=== PATIENT | female | born 1945 | race Caucasian/White ===

== ENCOUNTER → 2016-11-02 | Outpatient (CLI) | payer OTHER, MEDICARE ==
[~2016-11-02] MED LIST: CLR10 PO; ESCI10TA17 PO; LOSA1TAB PO; METF-382 PO; MULT-506 PO
[2016-11-02 12:37] LABS: THYROID STIMULATING HORMONE 1.66 uIu/ml (0.300-4.500)
== END | disposition home or self-care (01) ==
LOC: C.LAB1850 11:18
PROVIDERS: ATTEND Internal Medicine Endocrinology, Diabetes & Metabolism
DX: E03.9 Hypothyroidism, unspecified (principal)

== ENCOUNTER → 2016-11-20 | Outpatient (CLI) | payer OTHER, MEDICARE | END | disposition home or self-care (01) | LOC: C.MAMM 08:23 | PROVIDERS: ATTEND Internal Medicine | DX: M85.89 Other specified disorders of bone density and structure, multiple sites (principal) ==

== ENCOUNTER → 2016-12-01 | Outpatient (CLI) | payer OTHER, MEDICARE ==
--- NOTE | 2016-12-06 09:35 | CODING QUERY MEDICAL NECESSITY ---
SUPPORTING DIAGNOSIS NEEDED Dr. Cullen, A supporting diagnosis is required for the test/procedure performed on this patient in order for us to be reimbursed by the patient's insurance. Please provide a supporting diagnosis for the following test/procedure listed below next to the test name along with your signature. *If there is no additional diagnosis for this patient that would support the following test/procedure please document that below next to the test/procedure. Test(s)/Procedure(s) that require a supporting diagnosis: * ([id number]) VITAMIN D ASSAY DIAGNOSIS: DATE OF SERVICE: 12/01/16 Provider Signature: Date: Thank you Brian Rubalcava [facility] Information Management Once completed, please kindly fax back to [phone] For questions please call [phone]
== END | disposition home or self-care (01) ==
LOC: C.LABBC 10:59
PROVIDERS: ATTEND Internal Medicine
DX: Z00.00 Encounter for general adult medical examination without abnormal findings (principal); M85.80 Other specified disorders of bone density and structure, unspecified site

== ENCOUNTER → 2017-08-17 | Outpatient (CLI) | payer OTHER, MEDICARE ==
--- NOTE | 2017-08-17 15:50 | MAMMOGRAPHY REPORT ---
BILATERAL DIGITAL SCREENING MAMMOGRAM WITH CAD: 08/17/2017 CLINICAL HISTORY: Routine screening. Patient has no complaints. TECHNIQUE: Current study was also evaluated with a Computer Aided Detection (CAD) system. Bilateral CC and MLO views were obtained. COMPARISON: Comparison is made to exams dated: 04/17/2016 mammogram, 04/09/2015 mammogram, 06/04/2013 ma mmogram, 06/15/2011 mammogram - [facility], 06/12/2007, and 06/12/2007. BREAST COMPOSITION: The tissue of both breasts is heterogeneously dense, which may obscure small mas ses. FINDINGS: No suspicious masses, calcifications, or areas of architectural distortion are noted in ei ther breast. There has been no significant interval change compared to prior exams. IMPRESSION: ACR BI-RADS CATEGORY 1: NEGATIVE There is no mammographic evidence of malignancy. A 1 year screening mammogram is recommended. The pa tient will receive written notification of the results. Approximately 10% of breast cancers are not detected with mammography. A negative mammographic report should not delay biopsy if a clinically suggestive mass is present. Donna Wellington M.D. ah/:08/17/2017 14:35:03 Motor Transport Inspector: Yulisa VARMA(R)(Cory)(BD), [facility] letter sent: Normal 1/2 BI-RADS Code: ACR BI-RADS Category 1: Negative
== END | disposition home or self-care (01) ==
LOC: C.MAMM 14:09
PROVIDERS: ATTEND Family Medicine
DX: Z12.31 Encounter for screening mammogram for malignant neoplasm of breast (principal)

== ENCOUNTER 2019-10-28 07:30 | Observation (INO) ==
[2019-10-28] MEDS ORDERED: MoRPHine SULFATE 2 MG/ML CARP IV PRN ×2 (07:55→15:55)
[2019-10-28] MEDS ORDERED: ONDANSETRON INJ 2 MG/ML 2 ML VIAL IV PRN ×3 (07:55→15:55)
[2019-10-28] MEDS ORDERED: SODIUM CHLORIDE 0.9% 1000ML 1,000 ML IV SCH (08:00)
--- NOTE | 2019-10-28 08:02 | Emergency Department Note ---
Entered by Neha Mcleod acting as a scribe for Lisa Samano DO History of Present Illness General Chief complaint: Abdominal Pain Stated complaint: SEVERE ABDOMINAL PAIN Time Seen by Provider: 10/28/19 07:39 Source: patient Mode of arrival: ambulatory Limitations: no limitations History of Present Illness Provider complaint: Abdominal pain Onset (ago): day(s) 1 Location: abdomen Radiation: back Severity: moderate Pain Consistency: + constant Maximum Pain Intensity: 8 Current Pain Intensity: 8 Quality: + aching Relieved By: + none Exacerbated By: + movement Associated symptoms: + fever/chills and + nausea/vomiting Treatments prior to arrival: cold therapy, heat therapy and other (Tums) This is a 74-year-old female presenting with complaints of abdominal pain. Patient states pain began last night across her central abdomen and lower abdomen. States she did become nauseous and vomited a small amount once. No blood noted in the vomit. Patient states pain persisted most of the night on this morning pain feels slightly lower and slightly worse on the right side. Patient notes there is mild accompanying low back pain. Patient denies any recent change in her bowel movements. Denies black or bloody stools. Denies noticing any change in her urine and has been urinating normally. Patient denies prior history of recurrent UTIs, although she states she did have a urinary tract infection several weeks ago which was treated without complicatio n. Patient states she has had chills with the pain, did not measure her temperature. Patient states she "has not felt well" over the course of the last week, but had not noticed any more focal symptoms. Patient has had prior colonoscopy that were reported to her as "normal". Only prior abdominal surgical history is a bilateral salpingo-oophorectomy. Patient denies any recent medication changes, dietary changes, or other recent illness. Patient noticed that going over bumps while driving here in the car made the pain hurt worse. Patient has not noticed any other change in the pain with position. Patient did not eat breakfast this morning. Home Medications Home Medications Medication Instructions Recorded Confirmed Type atorvastatin 20 mg tablet 20 mg PO DAILY #45 tab 05/06/19 10/28/19 History conjugated estrogens 0.625 mg/gram 1 applic TOPICAL DAILY gm 05/06/19 10/28/19 History vaginal cream hydrocodone-acetaminophen [[place]ard[place]] 1 - 2 tab PO Q6H PRN #20 tab 10/29/19 Rx Allergies Allergy/AdvReac Type Severity Reaction Status Date / Time amoxicillin Allergy Unknown UNKNOWN Verified 10/28/19 09:06 Sulfa (Sulfonamide Allergy Unknown UNKNOWN Verified 10/28/19 09:06 Antibiotics) Past Med/Surg History Medical History Anxiety disorder (Chronic) Dyslipidemia (Chronic) Idiopathic peripheral neuropathy (Chronic) Impaired fasting glucose (Chronic) Irritable bowel syndrome (Chronic) Radiculopathy (Chronic) Scoliosis (Chronic) Skin cancer dermatofibrosarcoma Spinal stenosis (Chronic) Thiamin deficiency (Chronic) Tremor (Chronic) Surgical History H/O bilateral oophorectomy H/O breast surgery History of salpingo-oophorectomy S/P skin biopsy Family History Mother Hypertension Father Hypertension Cardiac disorder Myocardial infarction Unknown Heart disease Sister Kidney stones Aunt Diabetes Social History Preferred Language: Slovenian Communication Ability: Effective Editor Department Required: No Beliefs That Will Affect Care: None Current Living Situation: Alone Feels Safe at Home: Yes Smoking Status: Never smoker Second Hand Exposure: No ; Hx Alcohol Use: No Hx Substance Use: No Review of Systems See HPI for pertinent positives & negatives. and A total of 10 systems reviewed and were otherwise negative Physical Exam Vital Signs Vital Signs - 24 hr 10/28/19 07:35 10/28/19 08:34 10/28/19 09:20 Temperature 98.6 F Temperature Source Oral Pulse Rate 94 H Pulse Rate [Left Finger] 70 80 Respiratory Rate 18 18 18 Respiratory Effort / Characteristics Non-Labored Spontaneous Respiratory Depth Normal Blood Pressure 169/80 H Blood Pressure [Left Arm] 148/84 H 161/81 H Blood Pressure Mean 109 Blood Pressure Mean [Left Arm] 105 107 Pulse Oximetry 98 99 99 Oxygen Delivery Method Room Air Room Air Room Air Sepsis Recent Fever Within 48 Hours No Sepsis New/Unexplained Change in Mental Status No Sepsis Action Taken by Nursing No Action Required 10/28/19 10:38 02/11/20 11:09 Temperature Temperature Source Pulse Rate Pulse Rate [Left Finger] 84 82 Respiratory Rate 16 20 Respiratory Effort / Characteristics Respiratory Depth Blood Pressure Blood Pressure [Left Arm] 144/77 H 136/75 Blood Pressure Mean Blood Pressure Mean [Left Arm] 99 95 Pulse Oximetry 96 96 Oxygen Delivery Method Room Air Room Air Sepsis Recent Fever Within 48 Hours Sepsis New/Unexplained Change in Mental Status Sepsis Action Taken by Nursing GENERAL: alert, well appearing, well nourished, no distress, non-toxic EYE EXAM: normal conjunctiva, PERRL and EOM's grossly intact OROPHARYNX: no exudate, no erythema, lips, buccal mucosa, and tongue normal and mucous membranes are moist NECK: supple, no nuchal rigidity, no adenopathy, non-tender LUNGS: Clear to auscultation. Normal chest wall mechanics HEART: no murmurs, S1 normal and S2 normal ABDOMEN: abdomen soft, mild central and lower abdominal tenderness, worse in the right lower quadrant, normo-active bowel sounds, no masses, mild rebound tenderness in the right lower quadrant. No guarding. BACK: Back is symmetrical on inspection and there is no deformity, no midline tenderness, no CVA tenderness. SKIN: no rashes and no bruising UPPER EXTREMITIES: upper extremities are grossly normal. FROM, nml pulses b/l. LOWER EXTREMITIES: No pitting edema. FROM, nml pulses b/l. Mild bilateral neuropathy which is chronic. NEURO EXAM: Normal sensorium, cranial nerves II-XII grossly intact, normal speech, no gross weakness of arms, no gross weakness of legs. Gross sensation intact. Course Course 0742: The patient was evaluated in room B8, and a complete history and physical examination were performed. 0812: I reevaluated the patient at this time. The nurse is medicating the patient at this time. 0843: I reevaluated the patient at this time who remains stable. 0950: I checked on the patient at this time who has finished her oral contrast. She declines further nausea medication. 1040: I updated the patient and her family at this time on her imaging study. 1047: I discussed the patients case with Dr. Cosme [facility] [place] General Surgeon, He will come examine the patient at bedside. He will evaluate the patient for further management. 1102: I updated the patient and her daughter at this time. Administered Medications Discontinued Medications Acetaminophen (Tylenol) 650 mg PO Q4H PRN PRN Reason: Pain Stop: 11/27/19 15:54 Last Admin: 10/29/19 06:04 Dose: 650 mg Documented by: [id number] Admin: 10/28/19 20:54 Dose: 650 mg Documented by: [id number] Bupivacaine HCl (Marcaine 0.5% Mpf) Confirm Administered Dose 30 ml .ROUTE .STK- MED ONE Stop: 10/28/19 13:02 Last Admin: 10/28/19 14:05 Dose: 5 ml Documented by: [id number] Sodium Chloride (Nss 1000ml) 1,000 mls @ 125 mls/hr IV .Q8H [facility] Stop: 11/27/19 07:59 Last Infusion: 10/28/19 16:00 Dose: 0 mls/hr Documented by: [id number] Admin: 10/28/19 08:16 Dose: 125 mls/hr Documented by: [id number] Cefoxitin Sodium (Mefoxin) 2,000 mg in 60 mls @ 100 mls/hr IV NOW [facility] Stop: 10/28/19 11:22 Last Infusion: 10/28/19 11:55 Dose: 0 mls/hr Documented by: [id number] Admin: 10/28/19 11:07 Dose: 100 mls/hr Documented by: [id number] Cefoxitin Sodium 1,000 mg/ (Dextrose) 60 mls @ 100 mls/hr IV Q6H [facility] Stop: 11/07/19 17:59 Last Infusion: 10/29/19 05:53 Dose: 0 mls/hr Documented by: [id number] Admin: 10/29/19 05:17 Dose: 100 mls/hr Documented by: [id number] Infusion: 10/28/19 23:38 Dose: 0 mls/hr Documented by: [id number] Admin: 10/28/19 23:02 Dose: 100 mls/hr Documented by: [id number] Infusion: 10/28/19 19:45 Dose: 0 mls/hr Documented by: [id number] Admin: 10/28/19 18:34 Dose: 100 mls/hr Documented by: [id number] Sodium Chloride (Nss 1000ml) 1,000 mls @ 80 mls/hr IV .[id number] [facility] Stop: 11/27/19 15:54 Last Admin: 10/29/19 06:05 Dose: Not Given Documented by: [id number] Infusion: 10/29/19 06:05 Dose: 0 mls/hr Documented by: [id number] Infusion: 10/28/19 19:45 Dose: 80 mls/hr Documented by: [id number] Infusion: 10/28/19 18:37 Dose: 0 mls/hr Documented by: [id number] Admin: 10/28/19 17:07 Dose: 80 mls/hr Documented by: [id number] Acetaminophen (Ofirmev) 1,000 mg in 100 mls @ 400 mls/hr IV NOW STA Stop: 10/28/19 16:36 Last Infusion: 10/28/19 16:46 Dose: 0 mls/hr Documented by: [id number] Admin: 10/28/19 16:31 Dose: 400 mls/hr Documented by: [id number] Ioversol (Optiray 320 100ml) 93 ml IV ONCE PRN PRN Reason: Interaction Checking Stop: 11/01/19 10:07 Last Admin: 10/28/19 10:08 Dose: 93 ml Documented by: [id number] Morphine Sulfate (Morphine Sulfate) 2 mg IV Q2H PRN PRN Reason: Pain Stop: 11/11/19 07:54 Last Admin: 10/28/19 08:16 Dose: 2 mg Documented by: [id number] Morphine Sulfate (Morphine Sulfate) 4 mg IV NOW STA Stop: 10/28/19 08:56 Last Admin: 10/28/19 08:59 Dose: 4 mg Documented by: [id number] Morphine Sulfate (Morphine Sulfate) 4 mg IV NOW STA Stop: 10/28/19 12:31 Last Admin: 10/28/19 12:37 Dose: 4 mg Documented by: [id number] Ondansetron HCl (Zofran) 4 mg IV NOW PRN PRN Reason: Nausea Stop: 11/27/19 07:54 Last Admin: 10/28/19 08:16 Dose: 4 mg Documented by: [id number] Ondansetron HCl (Zofran) 4 mg IV 4XDQ4H PRN PRN Reason: Nausea Stop: 11/27/19 15:54 Last Admin: 10/28/19 18:27 Dose: 4 mg Documented by: [id number] Medical Decision Making Differential Diagnosis Differential diagnoses includes but is not limited to gastritis, peptic ulcer disease, GERD, gallbladder disease, pancreatitis, small bowel obstruction, acute coronary syndrome, pericarditis, ischemic bowel, irritable bowel disease, irritable bowel syndrome, appendicitis, diverticulitis, malignancy, hernia, urinary tract infection, torsion, perforation, trauma, infectious. Medical Records Attestation: I reviewed the patient's medical records. Home Medications Current Medication List: was personally reviewed by me Laboratory Data Attestation: I reviewed the patient's lab results. Result diagrams: 10/28/19 08:04 10/28/19 08:04 Lab Results 10/28/19 10/28/19 10/28/19 Range/Units 08:04 08:04 08:04 WBC 13.49 H (4.8-10.8) K/uL RBC 4.67 (4.2-5.4) M/uL Hgb 13.9 (12.0-16.0) g/dL Hct 40.4 (37-47) % MCV 86.5 (80-100) fL MCH 29.8 (25-34) pg MCHC 34.4 (32-36) g/dL RDW Std Deviation 44.4 (36.4-46.3) fL RDW Coeff of [place] 14.0 (11.5-14.5) % Plt Count 185 (130-400) K/uL MPV 9.2 (7.4-10.4) fL Immature Gran % (Auto) 0.2 % Neut % (Auto) 87.9 % Lymph % (Auto) 7.2 % [place] % (Auto) 4.5 % Eos % (Auto) 0.1 % Baso % (Auto) 0.1 % Immature Gran # (Auto) 0.03 H (0.00-0.02) K/uL Neut # (Auto) 11.85 H (1.4-6.5) K/uL Lymph # (Auto) 0.97 L (1.2-3.4) K/uL [place] # (Auto) 0.61 H (0.11-0.59) K/uL Eos # (Auto) 0.01 (0-0.5) K/uL Baso # (Auto) 0.02 (0-0.2) K/uL Sodium 135 L (136-145) mmol/L Potassium 3.8 (3.5-5.1) mmol/L Chloride 102 (98-107) mmol/L Carbon Dioxide 26 (21-32) mmol/L Anion Gap 7.0 (3-11) BUN 18 (7-18) mg/dl Creatinine 0.79 (0.6-1.2) mg/dl Est Cr Clr Drug Dosing 67.3 ml/min Est GFR ( Amer) 86.7 Est GFR (Non-Af Amer) 74.8 BUN/Creatinine Ratio 22.0 H (10-20) Glucose 142 H (70-99) mg/dl Lactate 1.1 (0.4-2.0) mmol/L Calcium 9.5 (8.5-10.1) mg/dl Total Bilirubin 0.5 (0.2-1) mg/dl AST 14 L (15-37) U/L ALT 16 (12-78) U/L Alkaline Phosphatase 74 (45-117) U/L Total Protein 6.8 (6.4-8.2) gm/dl Albumin 3.5 (3.4-5.0) gm/dl Globulin 3.3 (2.5-4.0) gm/dl Albumin/Globulin Ratio 1.1 (0.9-2) Lipase 127 (73-393) U/L HCG, Qual Urine Color Urine Appearance (Clear) Urine pH (4.5-7.5) Ur Specific [place] (1.000-1.030) Urine Protein (Negative) Urine Glucose (UA) (Negative) Urine Ketones (Negative) Urine Blood (Negative) Urine Nitrite (Negative) Urine Bilirubin (Negative) Urine Urobilinogen (Negative) Ur Leukocyte Esterase (Negative) 10/28/19 10/28/19 Range/Units 08:04 08:04 WBC (4.8-10.8) K/uL RBC (4.2-5.4) M/uL Hgb (12.0-16.0) g/dL Hct (37-47) % MCV (80-100) fL MCH (25-34) pg MCHC (32-36) g/dL RDW Std Deviation (36.4-46.3) fL RDW Coeff of [place] (11.5-14.5) % Plt Count (130-400) K/uL MPV (7.4-10.4) fL Immature Gran % (Auto) % Neut % (Auto) % Lymph % (Auto) % [place] % (Auto) % Eos % (Auto) % Baso % (Auto) % Immature Gran # (Auto) (0.00-0.02) K/uL Neut # (Auto) (1.4-6.5) K/uL Lymph # (Auto) (1.2-3.4) K/uL [place] # (Auto) (0.11-0.59) K/uL Eos # (Auto) (0-0.5) K/uL Baso # (Auto) (0-0.2) K/uL Sodium (136-145) mmol/L Potassium (3.5-5.1) mmol/L Chloride (98-107) mmol/L Carbon Dioxide (21-32) mmol/L Anion Gap (3-11) BUN (7-18) mg/dl Creatinine (0.6-1.2) mg/dl Est Cr Clr Drug Dosing ml/min Est GFR ( Amer) Est GFR (Non-Af Amer) BUN/Creatinine Ratio (10-20) Glucose (70-99) mg/dl Lactate (0.4-2.0) mmol/L Calcium (8.5-10.1) mg/dl Total Bilirubin (0.2-1) mg/dl AST (15-37) U/L ALT (12-78) U/L Alkaline Phosphatase (45-117) U/L Total Protein (6.4-8.2) gm/dl Albumin (3.4-5.0) gm/dl Globulin (2.5-4.0) gm/dl Albumin/Globulin Ratio (0.9-2) Lipase (73-393) U/L HCG, Qual Cancelled Urine Color Yellow Urine Appearance Clear (Clear) Urine pH 6.0 (4.5-7.5) Ur Specific [place] 1.019 (1.000-1.030) Urine Protein Negative (Negative) Urine Glucose (UA) Negative (Negative) Urine Ketones 2+ H (Negative) Urine Blood Negative (Negative) Urine Nitrite Negative (Negative) Urine Bilirubin Negative (Negative) Urine Urobilinogen Negative (Negative) Ur Leukocyte Esterase Negative (Negative) Imaging Data Radiologist's Impression: Radiology results as stated below per my review and the radiologist's interpretation: CT OF THE ABDOMEN AND PELVIS WITH CONTRAST CLINICAL HISTORY: Right lower quadrant abdominal pain. COMPARISON STUDY: CT of the abdomen and pelvis June 14, 2015. Abdominal ultrasound May 08, 2016. TECHNIQUE: Following IV administration of 93 mL of Optiray-320, axial images of the abdomen and pelvis were obtained from the lung bases to the proximal femurs. Images were reviewed in the axial, sagittal, and coronal planes. IV contrast was administered without complication. Automated exposure control was utilized for the study. A dose lowering technique was utilized adhering to the principles of ALARA. Oral contrast was administered. CT DOSE: 337.44 mGy.cm FINDINGS: Incidental note is made of S-shaped scoliosis of the thoracolumbar spine. Mild cardiomegaly is noted. The liver, spleen, adrenal glands, kidneys and pancreas are unremarkable. A subcentimeter lesion within the midpole the right kidney is too small to characterize. There is no hydronephrosis. There is no biliary or pancreatic ductal dilatation patient. There is no evidence for a bowel obstruction. Several appendicoliths within the appendix are noted. The ap pendix is dilated, measuring 1.2 cm in caliber. There is mild periappendiceal infiltration. Appendix is fluid-filled. No free air or abscess is noted. There is no evidence for obstruction. Sigmoid diverticulosis is noted without evidence for acute diverticulitis. There is no lymphadenopathy. There are no suspicious osseous lesions. IMPRESSION: Acute appendicitis. No free air or abscess. ACT 112: Negative or not required by law. Electronically signed by: Elieser Hooper M.D. 10/28/2019 10:20 AM ECG Data Attestation: I personally reviewed and interpreted this ECG as follows: Indication: + abdominal pain Rate (beats per minute): 71 Rhythm: + sinus rhythm ECG Intervals/blocks: + Right Bundle branch block ECG [place]: + Left axis deviation ECG ST segments: no ST depression and no ST elevation ECG Findings: no PACs and no PVCs Blood Pressure Blood Pressure Findings: Elevated blood pressure Blood Pressure Disposition: further management by hospitalist [facility] Narrative Pt presenting with abdominal pain and nausea. No changes in bowel/bladder function. Vital signs stable. Pt found to have acute appendicitis on CT, no perf or abscess. Pt and daughter made aware of all results. Case discussed with Dr. Cosme, general surgery who came and evaluated pt at bedside for likely appendectomy. Pt in agreement with the plan. No evidence of bacteremia/sepsis, no other acute GI/ pathology noted. I do not suspect ischemia pathology. Impression & Plan Abdominal pain, Acute appendicitis, Nausea & vomiting Discharge Plan Visit Data *Final* Discharge Date/Time: 10/28/19 12:47 Chief Complaint: Abdominal Pain Stated Complaint: SEVERE ABDOMINAL PAIN ED Provider: Lisa Samano Discharge Problem: Abdominal pain, Acute appendicitis, Nausea & vomiting Patient Disposition: Still a Patient Discharge Instructions Interventions: ED Discharge Assessment Last Done: 10/28/19 12:47 Discharge Problem: Abdominal pain Qualifiers: Abdominal location: unspecified location Qualified Code(s): R10.9 - Unspecified abdominal pain Acute appendicitis Qualifiers: Acute appendicitis type: other Qualified Code(s): K35.890 - Other acute appendicitis without perforation or gangrene Nausea & vomiting Qualifiers: Vomiting type: unspecified Vomiting Intractability: unspecified Qualified Code(s): R11.2 - Nausea with vomiting, unspecified The scribe's documentation has been prepared under my direction and personally reviewed by me in its entirety. I confirm that the note above accurately reflects all work, treatment, procedures, and medical decision making performed by me.
[2019-10-28 08:14] LABS: Basophils # (auto) 0.02 K/uL (0-0.2); Basophils % (auto) 0.1 %; Eosinophils # (auto) 0.01 K/uL (0-0.5); Eosinophils % (auto) 0.1 %; Hematocrit (blood only) 40.4 % (37-47); Hemoglobin 13.9 g/dL (12.0-16.0); Immature Granulocytes # (auto) 0.03 K/uL (0.00-0.02); Immature Granulocytes % (auto) 0.2 %; Lymphocytes # (auto) 0.97 K/uL (1.2-3.4); Lymphocytes % (auto) 7.2 %; Mean Corpuscular Hemoglobin 29.8 pg (25-34); Mean Corpuscular Hgb Conc 34.4 g/dL (32-36); Mean Corpuscular Volume 86.5 fL (80-100); Mean Platelet Volume 9.2 fL (7.4-10.4); Monocytes # (auto) 0.61 K/uL (0.11-0.59); Monocytes % (auto) 4.5 %; Neutrophils # (auto) 11.85 K/uL (1.4-6.5); Neutrophils % (auto) 87.9 %; Platelet Count 185 K/uL (130-400); RDW Standard Deviation 44.4 fL (36.4-46.3); Red Blood Count 4.67 M/uL (4.2-5.4); White Blood Count 13.49 K/uL (4.8-10.8)
[2019-10-28 08:29] LABS: Albumin Level 3.5 gm/dl (3.4-5.0); Calcium 9.5 mg/dl (8.5-10.1); Creatinine Clr Calc Pharmacy 67.3 ml/min; Est GFR (African American) 86.7; Est GFR (Non-African American) 74.8; Potassium 3.8 mmol/L (3.5-5.1)
[2019-10-28 08:30] LABS: Appearance Urine Clear (Clear); Bilirubin Urine Negative (Negative); Blood Urine Negative (Negative); Color Urine Yellow; Glucose Urine UA Negative (Negative); Ketones Urine 2+ (Negative); Leukocyte Esterase Urine Negative (Negative); Nitrite Urine Negative (Negative); Protein Urine Negative (Negative); Specific Gravity Urine 1.019 (1.000-1.030); Urobilinogen Urine Negative (Negative)
[2019-10-28 08:32] LABS: Albumin Globulin Ratio 1.1 (0.9-2); Bilirubin,Total 0.5 mg/dl (0.2-1); Globulin 3.3 gm/dl (2.5-4.0); Total Protein 6.8 gm/dl (6.4-8.2)
[2019-10-28] MEDS ORDERED: MoRPHine SULFATE 4 MG/ML 1 ML CARP\\VIAL IV STA ×2 (08:55→12:30)
[2019-10-28] MEDS ORDERED: IOVERSOL 100ml IV PRN (10:08)
--- NOTE | 2019-10-28 10:21 | CT Scan Report ---
CT OF THE ABDOMEN AND PELVIS WITH CONTRAST CLINICAL HISTORY: Right lower quadrant abdominal pain. COMPARISON STUDY: CT of the abdomen and pelvis June 14, 2015. Abdominal ultrasound May 08 016. TECHNIQUE: Following IV administration of 93 mL of Optiray-320, axial images of the abdomen and pelvi s were obtained from the lung bases to the proximal femurs. Images were reviewed in the axial, sagitt al, and coronal planes. IV contrast was administered without complication. Automated exposure contro l was utilized for the study. A dose lowering technique was utilized adhering to the principles of A BON. Oral contrast was administered. CT DOSE: 337.44 mGy.cm FINDINGS: Incidental note is made of S-shaped scoliosis of the thoracolumbar spine. Mild cardiomegaly is noted. The liver, spleen, adrenal glands, kidneys and pancreas are unremarkable. A subcentimeter lesion within the midpole the right kidney is too small to characterize. There is no hydronephrosis. There is no biliary or pancreatic ductal dilatation patient. There is no evidence for a bowel obstruc tion. Several appendicoliths within the appendix are noted. The appendix is dilated, measuring 1.2 cm in caliber. There is mild periappendiceal infiltration. Appendix is fluid-filled. No free air or abs cess is noted. There is no evidence for obstruction. Sigmoid diverticulosis is noted without evidence for acute diverticulitis. There is no lymphadenopathy. There are no suspicious osseous lesions. IMPRESSION: Acute appendicitis. No free air or abscess. ACT 112: Negative or not required by law. Electronically signed by: Elieser Hooper M.D. 10/28/2019 10:20 AM
[2019-10-28] MEDS ORDERED: cefOXitin 2,000 MG/60 ML BAG IV STA (10:47)
--- NOTE | 2019-10-28 11:07 | History & Physical Report ---
Date of Service October 28, 2019 Assessment & Plan (1) Acute appendicitis: This is a 74y F who presents to the [facility] ED on 10/28/19 with complaints of abdominal pain. Workup in the ED revealed a WBC of [address] evidence concerning for acute appendicitis. On examination patient is tender to palpation in the right lower quadrant. We will plan to keep patient NPO with IVF. IV abx have been started in the ED. We will plan to proceed with surgical intervention for laparoscopic appendectomy today. Dr. Cosme will be by to obtain surgical consent. Dr Cosme- agree with above- pt seen in ER- for laparoscopic appendectomy, possible open operation. History of Present Illness Primary Care Provider: Paris Chauhan DO This is a 74y F who presents to the [facility] ED on 10/28/19 with complaints of abdominal pain. Patient reports her pain started yesterday evening after she ate dinner, around 6-7pm. Pain was initially generalized and she thought it was reflux type symptoms. She was unable to get comfortable during the night and her pain migrated towards the lower abdomen, worse on the right side prompting her to come to the ED for evaluation. She describes the pain as achy in character. Workup in the ED showed a WBC of 13.[address] a/p performed revealed evidence of acute appendicitis. She endorses + nausea, with a small bout of emesis, hot- flashes, and chills. She states she feels some urinary symptoms concerning for UTI, but UA in the ED was negative. She denies change in bowel habits, chest pain, or shortness of breath. Her prior abdominal surgical history includes a bilateral salpingo-oophorectomy. Allergies Allergy/AdvReac Type Severity Reaction Status Date / Time amoxicillin Allergy Unknown UNKNOWN Verified 10/28/19 09:06 Sulfa (Sulfonamide Allergy Unknown UNKNOWN Verified 10/28/19 09:06 Antibiotics) Home Medications Home Medications Medication Instructions Recorded Confirmed Type atorvastatin 20 mg tablet 20 mg PO DAILY #45 tab 05/06/19 10/28/19 History conjugated estrogens 0.625 mg/gram 1 applic TOPICAL DAILY gm 05/06/19 10/28/19 History vaginal cream Past Med/Surg History Medical History Anxiety disorder (Chronic) Dyslipidemia (Chronic) Idiopathic peripheral neuropathy (Chronic) Impaired fasting glucose (Chronic) Irritable bowel syndrome (Chronic) Radiculopathy (Chronic) Scoliosis (Chronic) Skin cancer dermatofibrosarcoma Spinal stenosis (Chronic) Thiamin deficiency (Chronic) Tremor (Chronic) Surgical History H/O bilateral oophorectomy H/O breast surgery History of salpingo-oophorectomy S/P skin biopsy Family History Mother Hypertension Father Hypertension Cardiac disorder Myocardial infarction Unknown Heart disease Sister Kidney stones Aunt Diabetes Social History Preferred Language: Turkmen Communication Ability: Effective Oxygen Equipment Aide Required: No Beliefs That Will Affect Care: None Current Living Situation: Alone Other Information That Helps Us Care for You: No Feels Safe at Home: Yes Safety Concerns: Feels Safe At This Time Smoking Status: Never smoker Do You Dip or Chew Tobacco: No ; Second Hand Exposure: No ; Tobacco Cessation Education Requested by Patient: No Hx Alcohol Use: No Hx Substance Use: No Review of Systems Constitutional: + chills hotflashes Respiratory: no shortness of breath Cardiovascular: no chest pain Gastrointestinal: + abdominal pain (lower abdomen, mostly right sided), + nausea and + vomiting; no change in bowel habits Physical Exam Physical Exam: awake/alert Constitutional: well developed, well nourished, cooperative and comfortable; no acute distress Respiratory: normal respiratory effort Cardiovascular: Rate/Rhythm: regular rate Gastrointestinal (Abdomen): Percussion/Palpation: + abdomen tender (lower abdomen, worse in the RLQ, + rovsings) and abdomen soft Results & Data Vital Signs (Past 12 Hours) Vital Signs Temp Pulse Pulse Resp BP BP Pulse Ox 10/28/19 10:38 84 16 144/77 H 96 10/28/19 09:20 80 18 161/81 H 99 10/28/19 08:34 70 18 148/84 H 99 10/28/19 07:35 37.0 C 94 H 18 169/[address] OF THE ABDOMEN AND PELVIS WITH CONTRAST CLINICAL HISTORY: Right lower quadrant abdominal pain. COMPARISON STUDY: CT of the abdomen and pelvis June 14, 2015. Abdominal ultrasound May 08, 2016. TECHNIQUE: Following IV administration of 93 mL of Optiray-320, axial images of the abdomen and pelvis were obtained from the lung bases to the proximal femurs. Images were reviewed in the axial, sagittal, and coronal planes. IV contrast was administered without complication. Automated exposure control was utilized for the study. A dose lowering technique was utilized adhering to the principles of ALARA. Oral contrast was administered. CT DOSE: 337.44 mGy.cm FINDINGS: Incidental note is made of S-shaped scoliosis of the thoracolumbar spine. Mild cardiomegaly is noted. The liver, spleen, adrenal glands, kidneys and pancreas are unremarkable. A subcentimeter lesion within the midpole the right kidney is too small to characterize. There is no hydronephrosis. There is no biliary or pancreatic ductal dilatation patient. There is no evidence for a bowel obstruction. Several appendicoliths within the appendix are noted. The appendix is dilated, measuring 1.2 cm in caliber. There is mild periappendiceal infiltration. Appendix is fluid-filled. No free air or abscess is noted. There is no evidence for obstruction. Sigmoid diverticulosis is noted without evidence for acute diverticulitis. There is no lymphadenopathy. There are no suspicious osseous lesions. IMPRESSION: Acute appendicitis. No free air or abscess. ACT 112: Negative or not required by law. Electronically signed by: Elieser Hooper M.D. 10/28/2019 10:20 AM PG Care Time/CCT Total # of Minutes Spent Total Time Spent with Patient: Total time spent is greater than 50% in coordination of care (as documented) at patient's floor/unit and/or counseling patient: Coding Level of Care Code 10225 Initial Inpt Care Lvl 3 Diagnoses Acute appendicitis K35.890 Acute appendicitis type: other (1) Acute appendicitis Acute appendicitis type: other Qualified Code(s): K35.890 - Other acute appendicitis without perforation or gangrene
[2019-10-28] MEDS ORDERED: fentaNYL citrate 100 MCG/2 ML VIAL ONE (12:25)
[2019-10-28] MEDS ORDERED: MIDAZOLAM HCL 1 MG/ML 2ML VIAL ONE (12:25)
[2019-10-28] MEDS ORDERED: ePHEDrine sulfate 50 MG/ML AMP IV PRN (13:00)
[2019-10-28] MEDS ORDERED: ATROPINE SULFATE 0.1 MG/ML 10ML SYR IV PRN (13:00)
[2019-10-28] MEDS ORDERED: LABETALOL HCL IV 5 MG/ML 20ML IV PRN (13:00)
[2019-10-28] MEDS ORDERED: HYDROmorphone INJ 1 MG/ML SYRINGE IV PRN (13:00)
[2019-10-28] MEDS ORDERED: fentaNYL citrate 100 MCG/2 ML VIAL IV PRN (13:00)
[2019-10-28] MEDS ORDERED: MEPERIDINE HCL 25 MG/ML CARP IV PRN (13:00)
[2019-10-28] MEDS ORDERED: PHENYLEPHRINE 100MCG/ML 5ML SYR IV PRN (13:00)
[2019-10-28] MEDS ORDERED: BUPIVACAINE 0.5 % 5 MG/1 ML MPF 30ML VIAL ONE (13:01)
--- NOTE | 2019-10-28 13:01 | Anesthesiology Consultation ---
Date of Service October 28, 2019 Assessment & Plan (1) Encounter for pre-operative examination: Chart Review Chart Review: Acceptable Risk for Surgery and Patient NOT seen in Pre Admission Testing Consults Requested none History Surgery Operation Date: 10/28/19 10:10 Proposed Procedures p Laparoscopic Appendectomy - Ramiro Cosme MD, FACS Height/Weight Height: 5 ft 9 in Weight: 66.5 kg Allergies Allergy/AdvReac Type Severity Reaction Status Date / Time amoxicillin Allergy Unknown UNKNOWN Verified 10/28/19 09:06 Sulfa (Sulfonamide Allergy Unknown UNKNOWN Verified 10/28/19 09:06 Antibiotics) Medications Home Medications Medication Instructions Recorded Confirmed Last Taken atorvastatin 20 mg tablet 20 mg PO DAILY #45 tab 05/06/19 10/28/19 Unknown conjugated estrogens 0.625 mg/gram 1 applic TOPICAL DAILY gm 05/06/19 10/28/19 Unknown vaginal cream Active Medications Generic Name Dose Route Start Last Admin Trade Name Freq PRN Reason Stop Dose Admin Sodium Chloride 1,000 mls @ 125 mls/hr 10/28/19 08:00 10/28/19 08:16 Nss 1000ml IV 11/27/19 07:59 125 mls/hr .Q8H REJI Administration Ioversol 93 ml 10/28/19 10:08 10/28/19 10:08 Optiray 320 100ml IV 11/01/19 10:07 93 ml ONCE PRN Administration Interaction Checking Morphine Sulfate 2 mg 10/28/19 07:55 10/28/19 08:16 Morphine Sulfate IV 11/11/19 07:54 2 mg Q2H PRN Administration Pain Ondansetron HCl 4 mg 10/28/19 07:55 10/28/19 08:16 Zofran IV 11/27/19 07:54 4 mg NOW PRN Administration Nausea Past Medical History Medical History Anxiety disorder (Chronic) Dyslipidemia (Chronic) Idiopathic peripheral neuropathy (Chronic) Impaired fasting glucose (Chronic) Irritable bowel syndrome (Chronic) Radiculopathy (Chronic) Scoliosis (Chronic) Skin cancer dermatofibrosarcoma Spinal stenosis (Chronic) Thiamin deficiency (Chronic) Tremor (Chronic) Past Family History Family History Mother Hypertension Father Hypertension Cardiac disorder Myocardial infarction Unknown Heart disease Sister Kidney stones Aunt Diabetes Past Surgical History Surgical History H/O bilateral oophorectomy H/O breast surgery History of salpingo-oophorectomy S/P skin biopsy Social History Smoking Status: Never smoker Do You Dip or Chew Tobacco: No Hx Alcohol Use: No Hx Substance Use: No substance use type: does not use Physical Exam Vital Signs Last Vital Signs Temp 37.0 C 10/28/19 07:35 Pulse 76 10/28/19 12:38 Resp 18 10/28/19 12:38 BP 135/75 10/28/19 12:38 Pulse Ox 99 10/28/19 12:38 Testing Laboratory Results 10/28/19 08:04 10/28/19 08:04 Urine Color Yellow 10/28/19 08:04 Urine Appearance Clear (Clear) 10/28/19 08:04 Urine pH 6.0 (4.5-7.5) 10/28/19 08:04 Ur Specific [place] 1.019 (1.000-1.030) 10/28/19 08:04 Urine Protein Negative (Negative) 10/28/19 08:04 Urine Glucose (UA) Negative (Negative) 10/28/19 08:04 Urine Ketones 2+ (Negative) H 10/28/19 08:04 Urine Nitrite Negative (Negative) 10/28/19 08:04 Ur Leukocyte Esterase Negative (Negative) 10/28/19 08:04 Electrocardiogram Date: 10/28/19 Findings: + NSR @ (71) and + RBBB Other Testing CT OF THE ABDOMEN AND PELVIS WITH CONTRAST CLINICAL HISTORY: Right lower quadrant abdominal pain. COMPARISON STUDY: CT of the abdomen and pelvis June 14, 2015. Abdominal ultrasound May 08, 2016. TECHNIQUE: Following IV administration of 93 mL of Optiray-320, axial images of the abdomen and pelvis were obtained from the lung bases to the proximal femurs. Images were reviewed in the axial, sagittal, and coronal planes. IV contrast was administered without complication. Automated exposure control was utilized for the study. A dose lowering technique was utilized adhering to the principles of ALARA. Oral contrast was administered. CT DOSE: 337.44 mGy.cm FINDINGS: Incidental note is made of S-shaped scoliosis of the thoracolumbar spine. Mild cardiomegaly is noted. The liver, spleen, adrenal glands, kidneys and pancreas are unremarkable. A subcentimeter lesion within the midpole the right kidney is too small to characterize. There is no hydronephrosis. There is no biliary or pancreatic ductal dilatation patient. There is no evidence for a bowel obstruction. Several appendicoliths within the appendix are noted. The appendix is dilated, measuring 1.2 cm in caliber. There is mild periappendiceal infiltration. Appendix is fluid-filled. No free air or abscess is noted. There is no evidence for obstruction. Sigmoid diverticulosis is noted without evidence for acute diverticulitis. There is no lymphadenopathy. There are no suspicious osseous lesions. IMPRESSION: Acute appendicitis. No free air or abscess. ACT 112: Negative or not required by law. Electronically signed by: Elieser Hooper M.D. 10/28/2019 10:20 AM Dictated: 10/28/19 1015 Transcribed: 10/28/19 1015
[2019-10-28] MEDS ORDERED: LIDOCAINE HCL 2% 2 ML VIAL/AMP(20MG/ML) INFIL ONE (13:44)
[2019-10-28] MEDS ORDERED: PROPOFOL IV EMULSION 10 MG/ML 20 ML VIAL IV ONE (13:44)
[2019-10-28] MEDS ORDERED: DEXAMETHASONE SOD INJ 4 MG/ML VIAL ONE (13:44)
[2019-10-28] MEDS ORDERED: ROCURONIUM BROMIDE 10 MG/ML 5 ML VIAL ONE (13:44)
[2019-10-28] MEDS ORDERED: NEOSTIGMINE METHYLSULFATE 5 MG/5 ML SYR ONE (13:44)
[2019-10-28] MEDS ORDERED: ONDANSETRON INJ 2 MG/ML 2 ML VIAL ONE (13:44)
[2019-10-28] MEDS ORDERED: ePHEDrine sulfate 50 MG/ML SYR ONE (13:44)
[2019-10-28] MEDS ORDERED: PHENYLEPHRINE 100MCG/ML 5ML SYR ONE (13:44)
[2019-10-28] MEDS ORDERED: GLYCOPYRROLATE 0.2 MG/ML VIAL ONE (13:44)
[2019-10-28] MEDS ORDERED: ACETAMINOPHEN 1,000 MG/100 ML VIAL IV STA ×2 (14:05→16:22)
--- NOTE | 2019-10-28 14:05 | Post Operative Brief Note ---
PG Immediate Post Op with CF Date of Surgery October 28, 2019 Pre & Post Diagnosis Operation Date: 10/28/19 10:10 Pre-Op Diagnosis: Severe Abdominal Pain, Appendicitis Post-Op Diagnosis: Severe Abdominal Pain, Appendicitis I identified the patient and participated in the time-out.: Yes Procedure Operation Date: 10/28/19 10:10 Actual Procedures p Laparoscopic Appendectomy(Not Applicable) - Ramiro Cosme MD, FACS Surgeon Ramiro Cosme MD, FACS Item Processor Eveline Lopez Estimated Blood Loss 5 Findings Consistent with Post-Op Diagnosis Specimens Specimen Description: Permanent specimen: A. appendix
--- NOTE | 2019-10-28 14:30 | Operative Report ---
DATE OF OPERATION: 10/28/2019 NAME OF OPERATION: Laparoscopic appendectomy. PREOPERATIVE DIAGNOSIS: Acute appendicitis. POSTOPERATIVE DIAGNOSIS: Acute appendicitis. STAFF SURGEON: Ramiro Cosme MD ANESTHESIA: General. COMMANDING OFFICER TRAFFIC DIVISION: Lois Haney. DESCRIPTION OF PROCEDURE: The patient was brought in the operating room and placed on the operating table in supine position. Her abdomen was prepped and draped in usual fashion. Pneumatic stockings, orogastric tube were placed. A 0.5% plain Marcaine was used to anesthetize skin and subcutaneous tissue just above the umbilicus, carrying dissection down to the fascia, placing a Veress needle producing pneumoperitoneum. A 5 mm port was placed at this level and then a camera passed. Under visualization, a 5 mm port was placed suprapubically. The appendix was identified. A 12 mm port was placed in left lower quadrant. The appendix was reflected and then the base of the appendix was dissected free. It was transected using an Endo-AKIN stapler and then the mesoappendix was transected using the Endo AKIN stapler. The patient did have a small amount of cloudy fluid in the right lower quadrant which was irrigated and aspirated. We also checked the right colic gutter. There was no significant fluid superior and then in the pelvis the fluid appeared to be clear and I did irrigate this areas. At this point, the appendix prior to that was placed in an Endobag and removed through the 12 mm site. After appropriate hemostasis and irrigation, all ports were removed. Fascia at the 12 mm site closed using interrupted 0 Vicryl suture. Skin reapproximated using subcuticular 4-0 Monocryl, Steri-Strips placed at the left lower quadrant and Dermabond on the other 2 sites. The patient was transferred to recovery room in stable condition. I attest to the content of the Intraoperative Record and any orders documented therein. Any exception s are noted below.
--- NOTE | 2019-10-28 14:42 | Anesthesiology Progress Note ---
Date of Service October 28, 2019 Anesthesia Post Procedure Vital Signs Vital Signs: Temp Pulse Pulse Pulse Resp BP BP 10/28/19 14:35 80 15 137/63 10/28/19 14:25 82 18 139/66 10/28/19 14:18 36.4 C L 91 H 16 143/70 H 10/28/19 12:56 36.3 C L 79 18 145/71 H 10/28/19 12:38 76 18 135/75 10/28/19 11:09 82 20 136/75 10/28/19 10:38 84 16 144/77 H 10/28/19 09:20 80 18 161/81 H 10/28/19 08:34 70 18 148/84 H 10/28/19 07:35 37.0 C 94 H 18 169/80 H Pulse Ox 10/28/19 14:35 95 10/28/19 14:25 96 10/28/19 14:18 98 10/28/19 12:56 96 10/28/19 12:38 99 10/28/19 11:09 96 10/28/19 10:38 96 10/28/19 09:20 99 10/28/19 08:34 99 10/28/19 07:35 98 Pain Intensity Left Finger: Pain Intensity: 1 Right Lower Abdomen: Pain Intensity: 1 Transfer of Care Handoff Completed per policy Notes Mental Status: alert / awake / arousable Patient Amnestic to Procedure: Yes Nausea / Vomiting: adequately controlled Pain: adequately controlled Airway Patency, RR, SpO2: stable & adequate BP & HR: stable & adequate Hydration State: stable & adequate Anesthetic Complications: no major complications apparent and Pt Satisfied with anesthetic care Notes: The patient is awake and comfortable. Her vital signs are stable.
--- NOTE | 2019-10-28 15:03 | Electrocardiogram Report ---
Test Reason : Blood Pressure : / mmHG Vent. Rate : 071 BPM Atrial Rate : 071 BPM P-R Int : 162 ms QRS Dur : 140 ms QT Int : 428 ms P-R-T Axes : 083 -43 059 degrees QTc Int : 465 ms Normal sinus rhythm Left axis deviation Right bundle branch block Abnormal ECG When compared with ECG of 10-APR-2001 12:30, Right bundle branch block is now Present Confirmed by Neel Norman ([id number]) on 10/28/2019 3:03:30 PM Referred By: REFERRED SELF Confirmed By:Neel Norman
[2019-10-28] MEDS ORDERED: HYDROCODONE/ACETAMOPHEN 5/325MG TAB PO PRN ×2 (15:55)
[2019-10-28] MEDS ORDERED: PROMETHAZINE HCL 12.5 MG in SODIUM CHLORIDE 0.9% 50 ML IV PRN (15:55)
[2019-10-28] MEDS ORDERED: MoRPHine SULFATE 4 MG/ML 1 ML CARP\\VIAL IV PRN (15:55)
[2019-10-28] MEDS ORDERED: IBUPROFEN 600 MG TAB PO PRN (15:55)
[2019-10-28] MEDS: SODIUM CHLORIDE 0.9% 1000ML 1,000 ML IV SCH (17:07)
[2019-10-28] MEDS: ACETAMINOPHEN 325 MG TAB PO PRN (20:54)
[2019-10-29] MEDS: ACETAMINOPHEN 325 MG TAB PO PRN (06:04)
[2019-10-29] MEDS: SODIUM CHLORIDE 0.9% 1000ML 1,000 ML IV SCH (06:05)
--- NOTE | 2019-10-29 07:39 | Anesthesiology Progress Note ---
Date of Service October 29, 2019 Anesthesia Post Procedure Vital Signs Vital Signs: Temp Pulse Pulse Pulse Resp BP Pulse Ox 10/29/19 07:11 36.6 C 75 73 18 153/85 H 97 10/29/19 03:29 36.6 C 73 18 153/85 H 97 10/28/19 23:12 36.4 C L 67 18 130/74 96 10/28/19 18:42 36.6 C 79 16 112/68 97 10/28/19 17:42 37.1 C 89 18 153/76 H 95 10/28/19 16:45 36.8 C 84 16 121/67 94 10/28/19 16:18 36.8 C 84 16 127/68 94 10/28/19 15:40 37.5 C 81 16 125/68 96 10/28/19 15:25 37.4 C 75 15 124/61 94 10/28/19 15:15 74 17 118/60 94 10/28/19 15:05 81 18 121/63 96 10/28/19 14:55 37.4 C 79 18 126/63 96 10/28/19 14:45 37.4 C 78 15 132/64 95 10/28/19 14:35 80 15 137/63 95 10/28/19 14:25 82 18 139/66 96 10/28/19 14:18 36.4 C L 91 H 16 143/70 H 98 10/28/19 12:56 36.3 C L 79 18 145/71 H 96 10/28/19 12:38 76 18 135/75 99 10/28/19 11:09 82 20 136/75 96 10/28/19 10:38 84 16 144/77 H 96 10/28/19 09:20 80 18 161/81 H 99 10/28/19 08:34 70 18 148/84 H 99 Pain Intensity Left Finger: Pain Intensity: 1 Right Lower Abdomen: Pain Intensity: 1 Notes Mental Status: alert / awake / arousable and participated in evaluation Patient Amnestic to Procedure: Yes Nausea / Vomiting: adequately controlled Pain: adequately controlled Airway Patency, RR, SpO2: stable & adequate BP & HR: stable & adequate Hydration State: stable & adequate Anesthetic Complications: no major complications apparent and Pt Satisfied with anesthetic care
[2019-10-29] MEDS ORDERED: ATORVASTATIN 20 MG TAB PO SCH (09:00)
--- NOTE | 2019-10-29 10:58 | Discharge Summary ---
PRINCIPAL DIAGNOSIS: Acute appendicitis. PROCEDURE: The patient underwent laparoscopic appendectomy. HISTORY OF PRESENT ILLNESS: The patient is a 74-year-old female presenting to the Emergency Room with persistent abdominal pain, found on CAT scan with acute appendicitis. She was taken to the operating room on 10/28/2019 where she underwent laparoscopic appendectomy, which she tolerated very well. She is to be discharged home today, doing well on antibiotics and pain medication, to be followed in the surgical clinic within 2 weeks.
== END 2019-10-29 08:59 | disposition home or self-care (01) ==
LOC: ED 07:30 → 3N 12:47 → ASU 12:47

== ENCOUNTER 2020-03-30 13:43 | Observation (INO) ==
--- NOTE | 2020-03-30 15:11 | History & Physical Bridge Note ---
Date of Service March 30, 2020 History & Physical Bridge Note I have examined the patient, reviewed the History & Physical and in the interval since the performance of the History & Physical I have noted the following changes of clinical significance: no changes noted
--- NOTE | 2020-03-30 15:12 | Pre Anesthesia Assessment ---
Date of Service March 30, 2020 Pre Sedation Assessment Vital Signs Temp Pulse Resp BP Pulse Ox 03/30/20 14:10 37.2 C 53 L 18 138/77 98 Cardiovascular + bradycardic Respiratory + respiratory effort normal Pre-Sedation Airway Assessment Smoking Status: Never smoker Hx Sleep Apnea: No Hx Difficult Intubation: No Short, Thick Neck: No Thyromental Distance: > or= 3.5 Finger Breadths Oral Cavity: + WNL Mallampati Class: II ASA: ASA2 Procedure Planning Contraindications for Sedation: none Current Medications Reviewed: Yes Notes The planned sedation has been discussed with the patient. Informed Consent was obtained. I have identified the patient, determined the appropriateness of sedation and have assessed the patient immediately prior to the procedure. All medicine(s) and interventions are by my order.
[2020-03-30] MEDS ORDERED: BACITRACIN INJ 50,000 UNIT VIAL ONE (15:34)
[2020-03-30] MEDS ORDERED: BUPIVACAINE 0.25% 30 ML VIAL ONE (15:34)
[2020-03-30] MEDS ORDERED: LIDOCAINE HCL 1% 20 ML VIAL ONE (15:34)
[2020-03-30] MEDS: fentaNYL citrate 100 MCG/2 ML VIAL ONE ×2 (16:12→16:28)
[2020-03-30] MEDS: MIDAZOLAM HCL 5 MG/ML 1 ML VIAL ONE ×2 (16:12→16:28)
--- NOTE | 2020-03-30 16:42 | Post Anesthesia Assessment ---
Date of Service March 30, 2020 Post Sedation Assessment Vital Signs Temp Pulse Resp BP Pulse Ox 03/30/20 14:10 37.2 C 53 L 18 138/77 98 Recovery Score Activity: Moves 4 extremities Respiration: Deep Breath/Cough Circulation: +/-20-49% PreAnes Value Consciousness: Fully Awake Oxygen Saturation: > 92% On Room Air Discharge Sedation Level of Care: Fast Track Phase II Post Sedation Plan On clinical assessment, the patient appears to have tolerated the sedation without complications. Patient is recovering as anticipated. Patient will continue to be monitored by nursing and may be discharged when sedation discharge criteria are met per below protocol. Upon Completions of procedure up to 15 minutes continue every 5 minute vital signs and the P.A.R. score; then discharge to a Phase I or Fast Track to Phase II per the following guidelines: * Discharge Patient to appropriate Phase II area if PAR is 8 or greater or return to pre- procedure baseline. The post - procedure orders will be as directed. * If PAR score is less than 8 or not return to pre-procedure baseline then patient will follow Phase I monitoring till PAR is reached for Phase II. The Phase I may be done in procedure room or may call to secure a Phase I area. * If naloxone or flumazenil are used for reversal, hold in Phase I for continued monitoring from when last reversal dose was given for a minimum of 60 minutes or longer pending the nurse and/or physician discretion of patient condition before discharge to Phase II. Please call the Sedation Physician to re-evaluate and complete post-note for discharge to Phase II area. Do NOT discharge from procedure sedation or Phase 1 until post- sedation evaluation note is complete by procedure /sedation MD Sedation Discharge Instructions to be given to the patient at discharge to home.
--- NOTE | 2020-03-30 16:42 | Electrophysiology Report ---
Date of Service March 30, 2020 Electrophysiology Procedure Electrophysiology Procedure Report Procedure performed: Implantation of dual-chamber permanent pacemaker Staff javascript developer: Mao Saldana MD Indication: The patient is a 75-year-old woman who presented to her javascript developer with symptoms of exertional intolerance and palpitations. She was discovered to have second-degree AV block. She was felt to be a good candidate for permanent pacemaker due to symptomatic nonreversible AV block. A dual-chamber device was selected and she is currently in sinus rhythm and wished to maintain AV synchrony. Procedure in detail: The patient was informed of the risks benefits and alternatives to the intended procedure and she wished to proceed. She was taken to the electrophysiology suite in a fasting state. A preoperative antibiotic had been administered. The patient was monitored electrocardiographically throughout today's procedure and conscious sedation was administered per protocol. The left upper pectoral area is prepped and draped in usual sterile fashion. This area was anesthetized using subcutaneous administration of a xylocaine solution. An incision was made at this site and carried down to the prepectoralis fascia using sharp dissection. Electrocautery was also employed for dissection as well as for hemostasis. A device pocket was fashioned tissues above the pectoralis muscle. Subsequent to this maneuver the left axillary vein was accessed using modified Seldinger technique. Sheaths were placed over guidewires at this site and used to facilitate passage of the pacing leads to the respective chambers under fluoroscopic guidance. This included right atrial and right ventricular leads. Adequate sensing and threshold parameters were obtained prior to Active fixation of the leads to the endocardial surface. The proximal portion leads were then sutured the prepectoral fascia using nonabsorbable suture. The device pocket was irrigated with antibiotic solution. The leads were then attached to the device. The device and leads were then placed in the pocket and pocket was closed in 3 layers of absorbable suture. Steri-Strips and sterile dressing were applied. The device was tested noninvasively prior to conclusion the procedure. The patient tolerated procedure well there no immediate complications. Equipment used: New pulse generator: Plodding Operator [employer] Model number: [id number] serial number [id number] Right atrial lead: Plodding Operator [employer] Model number: 5076 serial number [id number] Right ventricular lead: Plodding Operator [employer] Model number: 5076 serial number [id number] Measured data: Right atrial lead: P waves measure 2 mV. Pacing threshold 1 V at 0.4 ms with a pacing impedance of 589 ohms Right ventricular lead: R waves measured 4.4 mV. Pacing thresholds 0.75 V at 0.4 ms with a pacing impedance of 703 ohms Impression: Successful implantation of dual-chamber permanent pacemaker [facility] Electrophysiology codes Pacing Procedure 1: Pacin Insert/Replace Pacer A & V PG Moderate Sedation Codes Moderate Sedation Codes Procedure 1: Sedation/Anesthesia: 99770 Mod Sedation by the same physician;Init15 Min Child Age 5 & Up Procedure 2: Sedation/Anesthesia: 91747 Mod Sedation by the same physician; Ea [id number] Minutes
[2020-03-30] MEDS ORDERED: ZOLPIDEM TARTRATE 5 MG TAB PO PRN (16:47)
[2020-03-30] MEDS ORDERED: LORazepam 0.5 MG TAB PO PRN (16:47)
[2020-03-30] MEDS: ACETAMINOPHEN 325 MG TAB PO PRN (18:41)
[2020-03-30] MEDS: OXYCODONE HCL IR 5 MG TAB (IMMEDIATE RELEASE) PO PRN (23:50)
[2020-03-30] MEDS: CEFAZOLIN 1000MG 1,000 MG/7.5 ML SYR IV SCH (23:50)
[2020-03-31] MEDS: ACETAMINOPHEN 325 MG TAB PO PRN (04:32)
--- NOTE | 2020-03-31 07:39 | XRay Report ---
XR chest 2V PA/lateral CLINICAL HISTORY: Pacemaker placement COMPARISON STUDY: May 2012 FINDINGS: There is a thoracolumbar scoliosis. The heart is normal in size. There is no failure. There is no focal pulmonary consolidation. There is been interval placement of a left subclavian dual-gatito tadeo central venous pacemaker. No pneumothorax is visualized. There is minor blunting of both posterio r costophrenic angles, likely the right..[ IMPRESSION: No evidence of pneumothorax status post placement of a left subclavian dual-chamber centr al venous pacemaker. ACT 112: Negative or not required by law. Electronically signed by: Marco Weinstein M.D. 03/31/2020 7:37 AM
[2020-03-31] MEDS: CEFAZOLIN 1000MG 1,000 MG/7.5 ML SYR IV SCH (08:30)
[2020-03-31] MEDS: OXYCODONE HCL IR 5 MG TAB (IMMEDIATE RELEASE) PO PRN (08:57)
[2020-03-31] MEDS ORDERED: ATORVASTATIN 20 MG TAB PO SCH (09:00)
[2020-03-31] MEDS ORDERED: ONDANSETRON INJ 2 MG/ML 2 ML VIAL ONE (11:17)
[2020-03-31] MEDS ORDERED: ONDANSETRON INJ 2 MG/ML 2 ML VIAL IV PRN (11:24)
--- NOTE | 2020-04-16 16:48 | Discharge Summary ---
Date of Service March 31, 2020 Admission HPI Per Admitting Provider Heart block and symptomatic bradycardia Principal Diagnosis q Discharge Exam Wound normal. No hematoma or sign of infection Discharge Data Allergies Allergy/AdvReac Type Severity Reaction Status Date / Time amoxicillin Allergy Unknown UNKNOWN Verified 04/06/20 09:46 Sulfa (Sulfonamide Allergy Unknown UNKNOWN Verified 04/06/20 09:46 Antibiotics) Procedures Performed Operation Date: 03/30/20 15:00 Actual Procedures p Pacer with A/V Leads (Dual) - Cl Saldana MD Ordered Studies 03/30/20 06:41 CL Cath Imgs for PACS use only Stat Hospital Course (1) Heart block: Ont he day of admission the patient underwent placement of a dual chamber Medtronic pacemaker. No complication. Normal device function, xray and exam at the time of discharge Total Time Total Time Spent Total Time Spent (In Minutes): 10 Total Time Includes: Examination of the Patient, Discharge Planning and Medication Reconciliation Discharge Plan Discharge Items Patient Disposition: Home - Self-Care Reason For Visit: DUAL CHAMBER PACEMAKER Discharge Diagnosis: heart block Condition on Discharge: Good Activity: Per Instructions section Activity Comment: No lifting left arm above shoulder or behind neck for 6 weeks. Lifting: No more than 10 pounds Bathing: Keep incision dry Bathing Comment: Keep wound dry and steri-strip intact until f/u next week. 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 Call non-emergency contact if: you have any medication questions, your pain is not controlled, you have a fever, your wound has increased redness, your wound has increased drainage and your wound pain has increased Follow-up/Referrals: Paris Chauhan DO [Primary Care Provider] - Diet: Gluten Free Addtl Attending Provider Instructions: none Pending Studies at Discharge: No Stand-Alone Forms: My [employer], Smoking Cessation Medications and DC Order Prescriptions: Continued conjugated estrogens 0.625 mg/gram cream 1 applic topical DAILY RF: 0 atorvastatin 20 mg tablet 20 mg PO DAILY Qty: 45 RF: 0 No Action colchicine 0.6 mg tablet 0.6 mg PO DAILY Qty: 30 RF: 0 Discharge Orders: Discharge Order (Routine); Ordered 03/31/20 Ordered By: Cl Bills/Other Patient Handouts: Discharge Instructions for Pacemaker Implantation Admission Data Admit Date/Time: 03/30/20 16:00 Attending Provider: Cl Saldana Admit Provider: Cl Saldana Primary Care Provider: Paris Cahuhan Other Interventions: Discharge Summary Assessment (RN) Last Done: 03/31/20 11:02 DC Date/Time DO NOT enter until pt leaves facility: 03/31/20 12:55 Coding Level of Care Code 58282 OBS Care - Discharge Diagnoses Heart block I45.9
== END 2020-03-31 12:55 | disposition home or self-care (01) ==
LOC: EP 13:43 → 2E 13:43

== ENCOUNTER 2025-03-22 13:28 | Observation (INO) ==
--- NOTE | 2025-03-22 14:11 | Emergency Department Note ---
Impression & Plan Dizziness, Aortic stenosis, Acute UTI (urinary tract infection), Orthostatic dizziness ED Provider Note HISTORY OF PRESENT ILLNESS: Patient is a 80-year-old female presenting with lightheadedness and dizziness. Patient has a history of aortic stenosis and is being worked up in the outpatient setting to have a TAVR performed. She states that for the last few weeks she has been having increasing frequency and lightheadedness and dizziness with standing. She states that over the last 2 weeks, her dizziness episodes are occurring more frequently and are lasting for longer periods of time. She started Lasix 48 hours ago, but denies any other changes in medications. She denies any chest pain or significant shortness of breath. She had called her daughter earlier today stating that she felt very lightheaded and dizzy and her daughter went to check on her. Daughter is a physician. Reports that the patient's blood pressure was in the 90s systolic. States that they have a home classroom monitor that shows an EKG concerning for A-fib which the patient has not been diagnosed with previously. Patient reports that when she stands up and gets her dizzy episodes, she feels like her heart is racing. Denies any DVT or PE history. Denies any history of cardiac stents. ROS: as above PHYSICAL EXAM: Constitutional: Patient appears in no acute distress. HENT: Head: Normocephalic and atraumatic. Eyes: EOMI, PERRL Mouth/Throat: Mucous membranes moist. Neck: Trachea midline. Neck supple. Cardiovascular: Paced rhythm. No rubs or gallops. Intact distal pulses. Continuous systolic murmur. Pulmonary/Chest: No respiratory distress. Breath sounds clear and equal bilaterally. No wheezes or rales. Abdominal: Abdomen soft, no tenderness, rebound or guarding. Musculoskeletal: No edema, tenderness or deformity noted. Skin: Warm and dry. No rash, erythema, pallor or cyanosis Psychiatric: Appropriate mood and affect for situation. Neurological: Alert and keenly responsive. CN II-XII grossly intact, moving all extremities equally and fully. MDM: - Vitals signs stable. - History obtained via patient. History as above. - Chronic conditions affecting care: IBS; RBBB; heart block (s/p pacemaker placement); aortic stenosis; HLD; hypothyroidism - Differential diagnoses include, but are not limited to: Dysrhythmia; dehydration; electrolyte abnormality; CVA; intracranial hemorrhage; ACS - Order placed for continuous cardiac monitoring. At this time, monitor showed rate of 71 bpm with paced rhythm, per my interpretation. - External medical records reviewed. Cardiology report dated 01/26/2025 was reviewed. Patient was seen for 6-month follow-up. She had an echocardiogram in January 2025 that showed normal biventricular size and function and moderate to severe aortic stenosis. - EKG image interpreted by myself showed paced rhythm. Rate 78 bpm. - Laboratory workup interpreted by myself showed normal WBC; normal PT/INR; stable electrolytes; normal troponin - CXR image reviewed by myself is negative for pneumonia, per my interpretation. - UA does show evidence concerning for infection. Given 2g IV rocephin - CT head wo contrast negative for acute pathology - Orthostatic vital signs did show that the patient had a drop in her systolic blood pressure from laying to standing. Patient did become symptomatic when standing up and stated that she felt very dizzy and lightheaded. - Discussed results with patient and her daughter at bedside. Patient does seem very symptomatic to her aortic stenosis at this point. She is having workup done in the outpatient setting for planning for TAVR. She scheduled for an outpatient heart catheterization to be performed in just over a week. Patient did start Lasix 2 days ago, which is likely exacerbating her symptoms and is likely the source for her orthostasis. Discussed discharge versus admission for further workup and monitoring. Patient was agreeable to admission. - Discussed case with glory hole tender on-call, Dr. Martinez, at 17:42. He is states that the cardiac catheterization could be performed while the patient was admitted or potentially as an outpatient later this week if patient's symptoms can be appropriately managed. He recommends holding any blood pressure medications like KARINA inhibitors or calcium channel blockers or any diuretics. He also states that would make sense to make the Lasix to do has as needed instead of scheduled. - CTA chest ordered for pre-op planning. - Discussion was had with case managers about patient's case and need for admission - Hospitalist, Dr. Choi, consulted for admission - Patient admitted to [facility]ist service for further evaluation and management. ASSESSMENT AND PLAN: Diagnosis: Dizziness; symptomatic aortic stenosis; acute UTI; orthostatic dizziness Plan: Admit Past Med/Surg History Problem List (Updated 03/22/25 @ 18:02 by Aniya Molina MD) Orthostatic dizziness (Acute) Acute UTI (urinary tract infection) (Acute) Aortic stenosis (Acute) Dizziness (Acute) Lumbosacral radiculopathy Arthralgia of multiple joints Dry mouth and eyes Vitamin D deficiency Sensory ataxia Abdominal pain, epigastric History of gastric ulcer History of colon polyps Restrictive lung disease Asthma Allergic rhinitis with postnasal drip Pleural effusion Exertional shortness of breath Dyspnea Chest pain Heart block Status post implantation of dual-chamber Medtronic pacemaker 03/30/2020 Encounter for pre-operative examination Nausea & vomiting (Acute) Acute appendicitis (Acute) Abdominal pain (Acute) History of hypertension (Acute) Impaired glucose tolerance (Acute) Right bundle branch block (Acute) Lumbar and sacral spondylarthritis Hip bursitis, left Acquired deviated nasal septum (Acute) Anxiety disorder (Chronic) Atrial premature complex (Acute) Dyslipidemia (Chronic) Idiopathic peripheral neuropathy (Chronic) Impaired fasting glucose (Chronic) Irritable bowel syndrome (Chronic) Laryngopharyngeal reflux (Acute) Myoclonus (Acute) Neck pain (Acute) Osteopenia (Acute) Palpitations (Acute) Prediabetes (Acute) Premature ventricular contractions (Acute) Radiculopathy (Chronic) Scoliosis (Chronic) Spinal stenosis (Chronic) Subclinical hypothyroidism (Acute) Thiamin deficiency (Chronic) Tremor (Chronic) Medical History (Updated 03/22/25 @ 18:02 by Aniya Molina MD) Radiculopathy chronic Exertional shortness of breath hx, "worse before, but still gets a little short of breath with stairs" Hx of colonic polyps Restrictive lung disease hx, 2019, f/u dr. vieira, no current issues Right bundle branch block (RBBB) Status post implantation of dual-chamber Medtronic pacemaker 03/30/2020 Scoliosis Spinal stenosis History of hypothyroidism Prediabetes Hx of pleural effusion 2019, f/u dr. vieira, no current issues Lumbar and sacral spondylarthritis IBS (irritable bowel syndrome) hx, no current issues History of hypertension no longer needs meds Heart block Status post implantation of dual-chamber Medtronic pacemaker 03/30/2020 Dyslipidemia Asthma no inh, no recent issues Anxiety disorder Poor balance neuropathy Schatzki's ring Hiatal hernia Seasonal allergies chronic sinus issues Pacemaker Medtronic, 2019, Dr Cartagena Regular checks once a yr. last check ? February 2024. Remote checks every 3 months. 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 Reason for most recent colonoscopy Apr 2023/Polyp was able to be removed. Surgical History History of esophagogastroduodenoscopy (EGD) History of colonoscopy S/P laparoscopic appendectomy 10/28/19 Dr. Cosme History of salpingo-oophorectomy bilateral Family History (Updated 03/10/25 @ 14:31 by DANIELITO Ortiz) Mother Hypertension Osteoarthritis Father Hypertension Cardiac disorder Myocardial infarction Unknown Heart disease Sister Kidney stones Aunt Diabetes Denies family history of Ovarian cancer Breast cancer Colorectal cancer Social History Smoking Status: Never smoker Second Hand Exposure: No; Do You Dip or Chew Tobacco: No; Hx Alcohol Use: No Hx Substance Use: No Preferred Language: Danish Communication Ability: Effective Employment Officer Required: No Beliefs That Will Affect Care: None Current Living Situation: Alone Feels Safe at Home: Yes Assistive Devices: Cane and Glasses Allergies Allergies Allergy/AdvReac Type Severity Reaction Status Date / Time Sulfa (Sulfonamide Allergy Unknown Rash Verified 02/26/25 09:18 Antibiotics) Home Meds Home Medications Medication Instructions Recorded Confirmed atorvastatin 20 mg tablet 20 mg PO QPM #45 tabs 05/06/19 03/22/25 conjugated estrogens 0.625 mg/gram 1 applic topical UD 06/11/20 03/22/25 vaginal cream azelastine 137 mcg (0.1 %) nasal 2 spray intranasal DAILY PRN 04/11/23 03/22/25 spray Allergy Symptoms cyclosporine 0.05 % eye drops in a 1 drp ophthalmic (eye) BID 04/11/23 03/22/25 dropperette (Restasis) ipratropium bromide 21 mcg (0.03 1 spray intranasal UD PRN Allergy 04/11/23 03/22/25 %) nasal spray Symptoms Medical Marijuana Card 1 dose topical UD PRN neuropathy 06/08/23 03/22/25 cholecalciferol (vitamin D3) 25 25 mcg PO DAILY 02/26/25 03/22/25 mcg (1,000 unit) capsule multivitamin (Daily Multi-Vitamin 1 tab PO DAILY 02/26/25 03/22/25 tablet) vitamin B with alpha lipoic acid 2 cap PO DAILY 02/26/25 03/22/25 vitamins A,C,D-[id number]-swkpai 4,296 1 cap PO BID 02/26/25 03/22/25 mcg-226 mg-90 mg capsule (PreserVision AREDS) furosemide 20 mg tablet 20 mg PO DAILY 03/22/25 03/22/25 lansoprazole 30 mg capsule,delayed 30 mg PO DAILY PRN Heartburn 03/22/25 03/22/25 release Previous Rx's Medication Instructions Recorded propranolol 10 mg tablet 10 mg PO BID #60 tabs 03/17/25 Results & Data (ED) Vital Signs Vital Signs - 24 hr 03/22/25 13:33 03/22/25 13:57 03/22/25 13:57 Temperature 36.9 C Temperature Source Temporal Artery Scan Pulse Rate - Lying Pulse Rate - Sitting Pulse Rate - Standing Pulse Rate 102 H 78 Pulse Rhythm Regular Regular Pulse Strength Normal Respiratory Rate 20 14 Respiratory Effort / Characteristics Spontaneous Respiratory Depth Normal Blood Pressure - Lying Blood Pressure - Sitting Blood Pressure- Standing Blood Pressure 120/78 Blood Pressure Mean 92 Pulse Oximetry 97 96 96 Oxygen Delivery Method Room Air Room Air Room Air Oxygen Flow Rate 0 Sepsis Recent Fever Within 48 Hours No Sepsis New/Unexplained Change in Mental Status N/A Sepsis Action Taken by Nursing No Action Required 03/22/25 14:54 03/22/25 15:00 03/22/25 15:30 Temperature Temperature Source Pulse Rate - Lying Pulse Rate - Sitting Pulse Rate - Standing Pulse Rate 76 82 84 Pulse Rhythm Pulse Strength Respiratory Rate 19 15 18 Respiratory Effort / Characteristics Respiratory Depth Blood Pressure - Lying Blood Pressure - Sitting Blood Pressure- Standing Blood Pressure 171/92 H 171/92 H 154/93 H Blood Pressure Mean 118 111 113 Pulse Oximetry 99 99 99 Oxygen Delivery Method Oxygen Flow Rate Sepsis Recent Fever Within 48 Hours Sepsis New/Unexplained Change in Mental Status Sepsis Action Taken by Nursing 03/22/25 15:59 03/22/25 16:10 Temperature Temperature Source Pulse Rate - Lying 74 Pulse Rate - Sitting 85 Pulse Rate - Standing 96 H Pulse Rate 71 Pulse Rhythm Pulse Strength Respiratory Rate Respiratory Effort / Characteristics Respiratory Depth Blood Pressure - Lying 158/78 H Blood Pressure - Sitting 148/91 H Blood Pressure- Standing 136/89 Blood Pressure Blood Pressure Mean Pulse Oximetry Oxygen Delivery Method Oxygen Flow Rate Sepsis Recent Fever Within 48 Hours Sepsis New/Unexplained Change in Mental Status Sepsis Action Taken by Nursing Laboratory Data 03/22/25 13:54 03/22/25 13:54 Lab Results 03/22/25 03/22/25 Range/Units 13:54 14:34 WBC 8.56 (4.8-10.8) K/ul RBC 5.08 (4.20-5.40) M/uL Hgb 15.1 (12.0-16.0) g/dl Hct 45.5 (37.0-47.0) % MCV 89.6 (80.0-100.0) fL MCH 29.7 (25.0-34.0) pg MCHC 33.2 (32.0-36.0) g/dL RDW Std Deviation 43.9 (36.4-46.3) fL RDW Coeff of [place] 13.3 (11.5-14.5) % Plt Count 251 (130-400) K/uL MPV 9.6 (9.4-12.4) fL Immature Gran % (Auto) 0.1 % Neut % (Auto) 61.6 % Lymph % (Auto) 26.9 % [place] % (Auto) 9.7 % Eos % (Auto) 1.1 % Baso % (Auto) 0.6 % Neut # (Auto) 5.28 (1.40-6.50) K/uL Lymph # (Auto) 2.30 (1.20-3.40) K/uL [place] # (Auto) 0.83 H (0.11-0.59) K/uL Eos # (Auto) 0.09 (0.00-0.50) K/uL Baso # (Auto) 0.05 (0.00-0.20) K/uL Immature Gran # (Auto) 0.01 (0.01-0.20) K/uL PT 10.9 (9.0-12.0) Seconds INR 1.0 (0.9-1.1) Sodium 138 (136-145) mmol/L Potassium 3.8 (3.5-5.1) mmol/L Chloride 104 (98-107) mmol/L Carbon Dioxide 28 (21-32) mmol/L Anion Gap 6 (3-11) BUN 36 H (6-23) mg/dl Creatinine 1.11 (0.6-1.2) mg/dl Est Cr Clr Drug Dosing 40.9 ml/min eGFR 50.88 BUN/Creatinine Ratio 32.4 H (10-20) Glucose 119 H (70-99(Fasting)) mg/dl Calcium 9.5 (8.6-10.3) mg/dl Magnesium 2.0 (1.7-2.4) mg/dl Total Bilirubin 0.6 (0.2-1.0) mg/dl AST 18 (13-39) U/L ALT 13 (7-52) U/L Alkaline Phosphatase 75 (34-104) U/L Troponin I High Sens 6.3 (0-14) pg/ml Total Protein 7.0 (6.0-8.3) gm/dl Albumin 4.1 (3.4-5.0) gm/dl Globulin 2.9 (2.5-4.0) gm/dl Albumin/Globulin Ratio 1.4 (0.9-2) Urine Color Yellow Urine Appearance Clear (Clear) Urine pH 5.5 (4.5-7.5) Ur Specific [place] 1.007 (1.000-1.030) Urine Protein Negative (Negative) Urine Glucose (UA) Negative (Negative) Urine Ketones Negative (Negative) Urine Blood Negative (Negative) Urine Nitrite Positive A (Negative) Urine Bilirubin Negative (Negative) Urine Urobilinogen Negative (Negative) Ur Leukocyte Esterase 1+ H (Negative) Urine WBC (Auto) 6-10 H (0-5) /hpf Urine RBC (Auto) 0-2 (0-2) /hpf U Hyaline Cast (Auto) 0-2 (0-2) /lpf U Epithel Cells (Auto) 0-2 (0-2) /hpf Urine Bacteria (Auto) 4+ H (None Seen) Urine Comment Administered Medications Discontinued Medications Ioversol (Optiray 320 125ml) 115 ml IV ONCE ONE Stop: 03/22/25 17:58 Last Admin: 03/22/25 17:58 Dose: 115 ml Documented By: SANTHOSH Imaging Data Radiologist's Impression: Chest X-Ray 03/22/25 13:46 Exam: Portable chest one view Reason for exam: Dizziness Previous study: 02/22/2024. FINDINGS: Left-sided pacemaker again noted. Cardiac size is normal. Lungs show some hyperinflation but no acute infiltrate, collapse or edema. Moderately severe scoliosis convex to the right is again noted. IMPRESSION: No acute cardiopulmonary disease seen at this time. Electronically signed by Donald Brandt 03-22-2025 2:[address] 03/22/25 13:46 Exam: CT head/brain without contrast Reason for exam: Dizziness Previous studies: MRI brain 05/10/2015 FINDINGS: No intracranial mass effect, hemorrhage or edema is found. No extra-axial blood or fluid collection or midline shift is seen. Ventricular size remains within normal limits. Mastoids and visualized paranasal sinuses remain well aerated. No acute process of the bony calvarium is found. IMPRESSION: Negative for active intracranial abnormality on unenhanced head CT study. Electronically signed by Donald Brandt 03-22-2025 2:59 PM Discharge Plan Visit Data Chief Complaint: Arrhythmia/Palpitations Stated Complaint: AORIC STENOSIS,POSSIBLE AFIB,LIGHTHEADED ED Provider: Aniya Molina Discharge Problem: Dizziness, Aortic stenosis, Acute UTI (urinary tract infection), Orthostatic dizziness Condition: Fair Forms Stand Alone Forms: My [email or web address] Prescriptions Prescriptions: No Action atorvastatin 20 mg tablet 20 mg PO QPM Qty: 45 conjugated estrogens 0.625 mg/gram cream 1 applic topical UD Patient Comments: twice monthly Rx Instructions: twice monthly cholecalciferol (vitamin D3) 25 mcg (1,000 unit) capsule 25 mcg PO DAILY PreserVision AREDS 4,296 mcg-226 mg-90 mg capsule 1 cap PO BID vitamin B with alpha lipoic acid 2 cap PO DAILY multivitamin [Daily Multi-Vitamin] Tablet 1 tab PO DAILY propranolol 10 mg tablet 10 mg PO BID Qty: 60 2RF Patient Comments: 03/22-per pt she hasnt started the medication yet. cyclosporine [Restasis] 0.05 % Dropperette 1 drp OPHTHALMIC (EYE) BID Patient Comments: both eyes azelastine 137 mcg (0.1 %) aerosol,spray 2 spray intranasal DAILY PRN (Reason: Allergy Symptoms) Rx Instructions: administer into each nostril ipratropium bromide 21 mcg (0.03 %) spray,non-aerosol 1 spray intranasal UD PRN (Reason: Allergy Symptoms) Rx Instructions: administer into each nostril Medical Marijuana Card 1 dose topical UD PRN (Reason: neuropathy) Patient Comments: lotion furosemide 20 mg tablet 20 mg PO DAILY lansoprazole 30 mg capsule,delayed release(DR/EC) 30 mg PO DAILY PRN (Reason: Heartburn) Referrals Referrals: Paris Chauhan DO [Primary Care Provider] -
[2025-03-22 14:12] LABS: Hematocrit (blood only) 45.5 % (37.0-47.0); Hemoglobin 15.1 g/dl (12.0-16.0); Immature Granulocytes # (auto) 0.01 K/uL (0.01-0.20); Immature Granulocytes % (auto) 0.1 %; Mean Corpuscular Hemoglobin 29.7 pg (25.0-34.0); Mean Corpuscular Volume 89.6 fL (80.0-100.0); Platelet Count 251 K/uL (130-400); RDW Standard Deviation 43.9 fL (36.4-46.3); Red Blood Count 5.08 M/uL (4.20-5.40); White Blood Count 8.56 K/ul (4.8-10.8)
[2025-03-22 14:29] LABS: Alanine Aminotransferase 13.0 U/L (7-52); Albumin Globulin Ratio 1.4 (0.9-2); Alkaline Phosphatase 75.0 U/L (34-104); Anion Gap 6.0 (3-11); Bilirubin,Total 0.6 mg/dl (0.2-1.0); Blood Urea Nitrogen 36.0 mg/dl (6-23); Calcium 9.5 mg/dl (8.6-10.3); Carbon Dioxide 28.0 mmol/L (21-32); Chloride 104.0 mmol/L (98-107); Creatinine Clr Calc Pharmacy 40.9 ml/min; Globulin 2.9 gm/dl (2.5-4.0); Glucose 119.0 mg/dl (70-99(Fasting)); Magnesium 2.0 mg/dl (1.7-2.4); Potassium 3.8 mmol/L (3.5-5.1); Sodium 138.0 mmol/L (136-145); Total Protein 7.0 gm/dl (6.0-8.3)
[2025-03-22 14:44] LABS: INR 1.0 (0.9-1.1); Prothrombin Time 10.9 Seconds (9.0-12.0)
--- NOTE | 2025-03-22 14:44 | XRay Report ---
Exam: Portable chest one view Reason for exam: Dizziness Previous study: 02/22/2024. FINDINGS: Left-sided pacemaker again noted. Cardiac size is normal. Lungs show some hyperinflation but no acute infiltrate, collapse or edema. Moderately severe scoliosis convex to the right is again noted. IMPRESSION: No acute cardiopulmonary disease seen at this time. Electronically signed by Donald Brandt 03-22-2025 2:43 PM
[2025-03-22 14:51] LABS: Appearance Urine Clear (Clear); Bacteria Urine Automated 4+ (None Seen); Cast Urine Automated 0-2 /lpf (0-2); Epithelial Cell Urine Auto 0-2 /hpf (0-2); Glucose Urine UA Negative (Negative); RBC Urine Automated 0-2 /hpf (0-2)
--- NOTE | 2025-03-22 14:59 | CT Scan Report ---
Exam: CT head/brain without contrast Reason for exam: Dizziness Previous studies: MRI brain 05/10/2015 FINDINGS: No intracranial mass effect, hemorrhage or edema is found. No extra-axial blood or fluid collection or midline shift is seen. Ventricular size remains within normal limits. Mastoids and visualized paranasal sinuses remain well aerated. No acute process of the bony calvarium is found. IMPRESSION: Negative for active intracranial abnormality on unenhanced head CT study. Electronically signed by Donald Brandt 03-22-2025 2:59 PM
--- NOTE | 2025-03-22 17:45 | History & Physical Report ---
Date of Service March 22, 2025 Assessment & Plan (1) Orthostatic dizziness: (2) Aortic stenosis: (3) Exertional chest pain: (4) Status cardiac pacemaker: (5) Heart block: (6) Restrictive lung disease: (7) Idiopathic peripheral neuropathy: (8) Impaired fasting glucose: (9) Scoliosis: (10) Bacteriuria: Plan Very pleasant 80yo female with history of severe aortic stenosis, long-standing dizziness/orthostasis, severe polyneuropathy affecting her legs (and her hands to smaller degree), pacemaker status due to heart block, allergic rhinitis, scoliosis with resulting restrictive lung disease, and very mild pre-DM who presents from home with worsening dizziness/lightheadedness over the past several days. Mrs Burns reports that for a long time she has suffered from dizziness/lightheadedness, but since about /Sunday of last week she has had much more frequent and severe symptoms. #acute on chronic dizziness/lightheadedness/orthostasis - -about a 20 point BP drop with standing in the ER this evening -she clinically and biochemically on labs appears intravascularly volume contracted -will give 500cc of NS overnight -repeat orthostatic BPs in the am -hold lasix -hold inderal and any other anti-hypertensive -there has been discussion in the past about her having autonomic orthostasis as a result of her long-standing severe polyneuropathy -this, coupled with her severe as well as recent lasix use, all are likely contributors to worsening dizziness -fortunately no vertigo and neuro exam is wnl #severe - -patient was to have a pre-TAVR heart catheterization with Dr Mao Martinez with [facility] on 03/31 -the ER attending did briefly correspond with Dr Martinez about the ability to perform the cath during this stay -I also corresponded with Dr Martinez and he plans for cath sometime tomorrow; thus, make NPO after MN tonight -see discussion above re: IV fluids, lasix, etc. -I am uncertain if some of her chest tightness is from the itself vs underlying/undiagnosed CAD vs asthma vs other etiology -formal consult placed to Dr Martinez -will also place formal consult to [facility] to follow #pacemaker status - -there was some question about rapid pulse & rapid heart rhythm detected at home by family -although she just had the device interrogated 2 weeks ago (was normal by report) will repeat the interrogation -she is being placed on PCU telemetry -pacer was placed in the past due to heart block -EKG with evening with ventricularly paced rhythm #chest tightness with exertion - -chronic -to have left heart cath with Dr Martinez this admission -CTA chest without PE or pneumonia -she does not examine in CHF despite the CTA showing "pulm vascular congestion" -although the chart lists asthma as a diagnosis, her prior PFTs did not show obstructive lung disease #chronic polyneuropathy - -just had EMGs by Dr Meléndez in the Neuro clinic -this showed severe polyneuropathy of uncertain etiology as well as mild radiculopathy from the lumbar spine -she has had extensive w/u for the polyneuropathy in the past including B1, B6, B12, TSH, lyme, etc -- all normal/negative -will add on a copper level to be complete -she is not on gabapentin, lyrica, or other agents for this issue #h/o pre-DM - -check Hba1c in am #bacteriuria - -although she has nitrites, WBCs, and bacteria on ua with microscopy today, she has NO UTI symptoms at this time -with that said a urine cx was dispatched from the ER and rocephin x 1 was given prior to my admission assessment -I cannot say if there is true UTI present; I cannot exclude UTI contributing to her worsening dizziness and presentation #hyperlipidemia - -cont lipitor -she follows with [facility] and thus I do not have access to her most recent lipid profile but will attempt to get such #DVT Proph - -hold off on chemical DVT proph at time of admission due to pending heart cath by Dr Martinez pt's family updated at bedside during the admission process History of Present Illness Chief Complaint: severe dizziness Primary Care Provider: Paris Chauhan, DO Very pleasant 80yo female with history of severe aortic stenosis, long-standing dizziness/orthostasis, severe polyneuropathy affecting her legs (and her hands to smaller degree), pacemaker status due to heart block, allergic rhinitis, scoliosis with resulting restrictive lung disease, and very mild pre-DM who presents from home with worsening dizziness/lightheadedness over the past several days. Mrs Burns reports that for a long time she has suffered from dizziness/lightheadedness, but since about /Sunday of last week she has had much more frequent and severe symptoms. Sitting down/laying down helps resolve the dizziness. Denies vertigo. Denies any recent illness. Last week she was seen by [facility] in [place]. She was given a prescription for lasix 20mg tablets due to edema of her legs as well as her clothes fitting more tightly. She took a dose yesterday morning and today. Today, 03/22/25, her dizziness symptoms were so severe that she called her daughter. In addition, earlier today her daughter who is a physician as well as her son-in-law who is a physician temporary administrative assistant were concerned that perhaps she was in atrial fibrillation as her pulse was fast. She has a pacemaker and it was last interrogated about 2 weeks ago. She reports her pacer has had normal function and no atrial fibrillation has been detected in the past. Denies any loss of appetite. Has been eating/drinking normally. With respect to her severe aortic stenosis -- Mrs Burns was to have a pre- TAVR cardiac catheterization on 03/[address] Jose Martinez. She has yet to establish with the valve clinic at [facility]. Finally, during medication review, Mrs Burns states she is NOT taking any propranolol at this time. Allergies Allergy/AdvReac Type Severity Reaction Status Date / Time Sulfa (Sulfonamide Allergy Unknown Rash Verified 02/26/25 09:18 Antibiotics) Home Medications Medication Instructions Recorded Confirmed Type atorvastatin 20 mg tablet 20 mg PO QPM #45 tabs 05/06/19 03/22/25 History conjugated estrogens 0.625 mg/gram 1 applic topical UD 06/11/20 03/22/25 History vaginal cream azelastine 137 mcg (0.1 %) nasal 2 spray intranasal DAILY PRN 04/11/23 03/22/25 History spray Allergy Symptoms cyclosporine 0.05 % eye drops in a 1 drp ophthalmic (eye) BID 04/11/23 03/22/25 History dropperette (Restasis) ipratropium bromide 21 mcg (0.03 1 spray intranasal UD PRN Allergy 04/11/23 03/22/25 History %) nasal spray Symptoms Medical Marijuana Card 1 dose topical UD PRN neuropathy 06/08/23 03/22/25 History cholecalciferol (vitamin D3) 25 25 mcg PO DAILY 02/26/25 03/22/25 History mcg (1,000 unit) capsule multivitamin (Daily Multi-Vitamin 1 tab PO DAILY 02/26/25 03/22/25 History tablet) vitamin B with alpha lipoic acid 2 cap PO DAILY 02/26/25 03/22/25 History vitamins A,C,X-plal-tdaqrb 4,296 1 cap PO BID 02/26/25 03/22/25 History mcg-226 mg-90 mg capsule (PreserVision AREDS) propranolol 10 mg tablet 10 mg PO BID #60 tabs 03/17/25 03/22/25 Rx furosemide 20 mg tablet 20 mg PO DAILY 03/22/25 03/22/25 History lansoprazole 30 mg capsule,delayed 30 mg PO DAILY PRN Heartburn 03/22/25 03/22/25 History release Past Med/Surg History Problem List (Updated 03/22/25 @ 22:02 by Alfa Holland) Bacteriuria Exertional chest pain Status cardiac pacemaker Orthostatic dizziness (Acute) Acute UTI (urinary tract infection) (Acute) Aortic stenosis (Acute) Dizziness (Acute) Lumbosacral radiculopathy Arthralgia of multiple joints Dry mouth and eyes Vitamin D deficiency Sensory ataxia Abdominal pain, epigastric History of gastric ulcer History of colon polyps Restrictive lung disease Asthma Allergic rhinitis with postnasal drip Pleural effusion Exertional shortness of breath Dyspnea Chest pain Heart block Status post implantation of dual-chamber Medtronic pacemaker 03/30/2020 Encounter for pre-operative examination Nausea & vomiting (Acute) Acute appendicitis (Acute) Abdominal pain (Acute) History of hypertension (Acute) Impaired glucose tolerance (Acute) Right bundle branch block (Acute) Lumbar and sacral spondylarthritis Hip bursitis, left Acquired deviated nasal septum (Acute) Anxiety disorder (Chronic) Atrial premature complex (Acute) Dyslipidemia (Chronic) Idiopathic peripheral neuropathy (Chronic) Impaired fasting glucose (Chronic) Irritable bowel syndrome (Chronic) Laryngopharyngeal reflux (Acute) Myoclonus (Acute) Neck pain (Acute) Osteopenia (Acute) Palpitations (Acute) Prediabetes (Acute) Premature ventricular contractions (Acute) Radiculopathy (Chronic) Scoliosis (Chronic) Spinal stenosis (Chronic) Subclinical hypothyroidism (Acute) Thiamin deficiency (Chronic) Tremor (Chronic) Medical History Radiculopathy chronic Exertional shortness of breath hx, "worse before, but still gets a little short of breath with stairs" Hx of colonic polyps Restrictive lung disease hx, 2019, f/u dr. vieira, no current issues Right bundle branch block (RBBB) Status post implantation of dual-chamber Medtronic pacemaker 03/30/2020 Scoliosis Spinal stenosis History of hypothyroidism Prediabetes Hx of pleural effusion 2019, f/u dr. vieira, no current issues Lumbar and sacral spondylarthritis IBS (irritable bowel syndrome) hx, no current issues History of hypertension no longer needs meds Heart block Status post implantation of dual-chamber Medtronic pacemaker 03/30/2020 Dyslipidemia Asthma no inh, no recent issues Anxiety disorder Poor balance neuropathy Schatzki's ring Hiatal hernia Seasonal allergies chronic sinus issues Pacemaker Medtronic, 2019, Dr Cartagena Regular checks once a yr. last check ? February 2024. Remote checks every 3 months. 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 Reason for most recent colonoscopy Apr 2023/Polyp was able to be removed. Surgical History History of esophagogastroduodenoscopy (EGD) History of colonoscopy S/P laparoscopic appendectomy 10/28/19 Dr. Cosme History of salpingo-oophorectomy bilateral Family History (Updated 03/22/25 @ 21:07 by Bj Choi MD) Mother , age 89 from CVA Hypertension Osteoarthritis Stroke Father , age 83; had 2 MIs during his lifetime Hypertension Cardiac disorder Myocardial infarction Coronary heart disease Unknown Heart disease Sister , sarcoma of the bowel; age 81 Kidney stones Cancer Aunt Diabetes Denies family history of Ovarian cancer Breast cancer Colorectal cancer Social History (Updated 03/22/25 @ 21:08 by Bj Choi MD) Smoking Status: Never smoker Second Hand Exposure: No; Do You Dip or Chew Tobacco: No; Hx Alcohol Use: No Hx Substance Use: No Preferred Language: Croatian Communication Ability: Effective 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 Required: No Beliefs That Will Affect Care: None marital status: / Current Living Situation: Alone Current Living Situation Comment: alone in ranch style home current occupational status: retired 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 No palpitations. Recent edema of legs - now resolved. pulm - no dyspnea, no significant cough GI - no nausea, emesis or diarrhea; no abd pain - no incontinence, no dysuria, no foul-smelling urine, no change in urinary habits endo - borderline pre-DM in the past but no diabetes neuro - severe neuropathy of legs, some in the arms/hands; no headaches skin - no rash musculo - no joint swelling Physical Exam Physical Exam: gen - NAD, pleasant, resting comfortably in bed eyes - PERRL HENT - MM modestly dry, no lesions; nose clear neck - right submandibular gland vs submandibular lymph node - firm/hard, about 2-3cm in size, mobile; no JVD; no generalized goiter heart - RRR, 3/6 holosystolic murmur heard loudest RUSB, s1, s2 barely heard at the RUSB lungs - CTA b/l, no rales, no wheeze abd - soft NT ND BS+; no HSM; negative hepatojugular reflex ext - no edema, pulses 2+ b/l feet and b/l radial pulses skin - no rash musculo - no joint deformities or synovitis neuro - strength 5/5 x 4 exts; no facial droop psych - a/o x 3 Results & Data Results & Data Vital Signs (Past 12 Hours) Vital Signs Temp Pulse Resp BP Pulse Ox O2 Del Method O2 Flow Rate 03/22/25 16:10 71 03/22/25 15:30 84 18 154/93 H 99 03/22/25 15:00 82 15 171/92 H 99 03/22/25 14:54 76 19 171/92 H 99 03/22/25 13:57 78 14 96 Room Air 07/06/25 13:57 96 Room Air 0 03/22/25 13:33 36.9 C 102 H 20 120/78 97 Room Air Laboratory Results Laboratory Results - last 24 hr 03/22/25 03/22/25 13:54 14:34 WBC 8.56 RBC 5.08 Hgb 15.1 Hct 45.5 MCV 89.6 MCH 29.7 MCHC 33.2 RDW Std Deviation 43.9 RDW Coeff of Antonieta 13.3 Plt Count 251 MPV 9.6 Immature Gran % (Auto) 0.1 Neut % (Auto) 61.6 Lymph % (Auto) 26.9 Esmeralda % (Auto) 9.7 Eos % (Auto) 1.1 Baso % (Auto) 0.6 Neut # (Auto) 5.28 Lymph # (Auto) 2.30 Esmeralda # (Auto) 0.83 H Eos # (Auto) 0.09 Baso # (Auto) 0.05 Immature Gran # (Auto) 0.01 PT 10.9 INR 1.0 Sodium 138 Potassium 3.8 Chloride 104 Carbon Dioxide 28 Anion Gap 6 BUN 36 H Creatinine 1.11 Est Cr Clr Drug Dosing 40.9 eGFR 50.88 BUN/Creatinine Ratio 32.4 H Glucose 119 H Calcium 9.5 Magnesium 2.0 Total Bilirubin 0.6 AST 18 ALT 13 Alkaline Phosphatase 75 Troponin I High Sens 6.3 Total Protein 7.0 Albumin 4.1 Globulin 2.9 Albumin/Globulin Ratio 1.4 Urine Color Yellow Urine Appearance Clear Urine pH 5.5 Ur Specific [place] 1.007 Urine Protein Negative Urine Glucose (UA) Negative Urine Ketones Negative Urine Blood Negative Urine Nitrite Positive A Urine Bilirubin Negative Urine Urobilinogen Negative Ur Leukocyte Esterase 1+ H Urine WBC (Auto) 6-10 H Urine RBC (Auto) 0-2 U Hyaline Cast (Auto) 0-2 U Epithel Cells (Auto) 0-2 Urine Bacteria (Auto) 4+ H Urine Comment Diagnostic Findings Chest X-Ray 03/22/25 13:46 Exam: Portable chest one view Reason for exam: Dizziness Previous study: 02/22/2024. FINDINGS: Left-sided pacemaker again noted. Cardiac size is normal. Lungs show some hyperinflation but no acute infiltrate, collapse or edema. Moderately severe scoliosis convex to the right is again noted. IMPRESSION: No acute cardiopulmonary disease seen at this time. Electronically signed by Donald Brandt 03-22-2025 2:[address] 03/22/25 13:46 Exam: CT head/brain without contrast Reason for exam: Dizziness Previous studies: MRI brain 05/10/2015 FINDINGS: No intracranial mass effect, hemorrhage or edema is found. No extra-axial blood or fluid collection or midline shift is seen. Ventricular size remains within normal limits. Mastoids and visualized paranasal sinuses remain well aerated. No acute process of the bony calvarium is found. IMPRESSION: Negative for active intracranial abnormality on unenhanced head CT study. Electronically signed by Donald Brandt 03-22-2025 2:59 PM Chest CTA 03/22/25 17:36 CT PULMONARY ANGIOGRAM. HISTORY: Chest pain TECHNIQUE: Enhanced CT examination of the chest was performed using pulmonary embolism protocol. IV CONTRAST: 100 mL of OMNIPAQUE 300 COMPARISON: Chest radiograph from same day. FINDINGS: PULMONARY ARTERIES: No filling defect identified to the segmental level. LYMPH NODES: No lymphadenopathy by size criteria. CARDIOVASCULAR: Enlarged cardiac size. No right heart strain no pericardial effusion. No aortic aneurysm. MEDIASTINUM: No solid or cystic mediastinal masses. The esophagus is normally decompressed. LUNGS/PLEURA: The central tracheo-bronchial tree is patent. No mass or consolidation identified. Mild pulmonary vascular congestion no pleural effusion or pneumothorax. No suspicious pulmonary nodules. Mild emphysema. BONES: No suspicious osseous lesions. Scoliosis VISUALIZED LOWER NECK: Right thyroid nodule measuring 1.4 cm. VISUALIZED UPPER ABDOMEN: Unremarkable IMPRESSION: No pulmonary embolism identified to the segmental level. Cardiomegaly without right heart strain. Mild pulmonary vascular congestion Mild emphysema Right thyroid nodule measuring 1.4 cm. Electronically signed by Jones Galdamez 03-22-2025 7:48 PM EKG - ventricularly paced rhythm Code Status & VTE Plan Code Status DNR/DNI PG Care Time/CCT Total # of Minutes Spent Total Time Spent with Patient: Total time spent is greater than 50% in coordination of care (as documented) at patient's floor/unit and/or counseling patient: Coding Level of Care Code 55601 INT INP/OBS CARE 3/75MIN Diagnoses Orthostatic dizziness R42 Aortic stenosis I35.0 Exertional chest pain R07.9 Status cardiac pacemaker Z95.0 Heart block I45.9 Restrictive lung disease J98.4 Idiopathic peripheral neuropathy G60.9 Impaired fasting glucose R73.01 Scoliosis M41.9 Bacteriuria R82.71
[2025-03-22] MEDS: OPTIRAY 320 125ml IV ONE (17:58)
[2025-03-22] MEDS: cefTRIAXone SODIUM 2,000 MG/50 ML BAG IV STA (18:20)
--- NOTE | 2025-03-22 19:17 | Electrocardiogram Report ---
Test Reason : Blood Pressure : */* mmHG Vent. Rate : 78 BPM Atrial Rate : 78 BPM P-R Int : 226 ms QRS Dur : 164 ms QT Int : 438 ms P-R-T Axes : 84 -82 92 degrees QTcB Int : 499 ms Atrial-sensed ventricular-paced rhythm with prolonged AV conduction Left atrial enlargement Abnormal ECG When compared with ECG of 28-Oct-2019 08:15, Electronic ventricular pacemaker has replaced Sinus rhythm with intact AV conduction Confirmed by Neel Norman ([id number]) on 03/22/2025 7:16:59 PM Referred By: Confirmed By: Neel Norman
[2025-03-22] MEDS: SODIUM CHLORIDE 0.9% 1,000 ML IV SCH (19:38)
--- NOTE | 2025-03-22 19:48 | CT Scan Report ---
CT PULMONARY ANGIOGRAM. HISTORY: Chest pain TECHNIQUE: Enhanced CT examination of the chest was performed using pulmonary embolism protocol. IV CONTRAST: 100 mL of OMNIPAQUE 300 COMPARISON: Chest radiograph from same day. FINDINGS: PULMONARY ARTERIES: No filling defect identified to the segmental level. LYMPH NODES: No lymphadenopathy by size criteria. CARDIOVASCULAR: Enlarged cardiac size. No right heart strain no pericardial effusion. No aortic aneurysm. MEDIASTINUM: No solid or cystic mediastinal masses. The esophagus is normally decompressed. LUNGS/PLEURA: The central tracheo-bronchial tree is patent. No mass or consolidation identified. Mild pulmonary vascular congestion no pleural effusion or pneumothorax. No suspicious pulmonary nodules. Mild emphysema. BONES: No suspicious osseous lesions. Scoliosis VISUALIZED LOWER NECK: Right thyroid nodule measuring 1.4 cm. VISUALIZED UPPER ABDOMEN: Unremarkable IMPRESSION: No pulmonary embolism identified to the segmental level. Cardiomegaly without right heart strain. Mild pulmonary vascular congestion Mild emphysema Right thyroid nodule measuring 1.4 cm. Electronically signed by Jones Galdamez 03-22-2025 7:48 PM
[2025-03-22] MEDS ORDERED: ONDANSETRON INJ 2 MG/ML 2 ML VIAL IV PRN (22:02)
[2025-03-22] MEDS ORDERED: ACETAMINOPHEN 325 MG TAB PO PRN (22:02)
[2025-03-22] MEDS ORDERED: IPRATROPIUM BROMIDE NASAL SPRAY 0.03% 30 ML NAE PRN (22:02)
[2025-03-22] MEDS ORDERED: AZELASTINE HCL 0.1% NASAL 200 SPRAYS/27,400 MCG BTL NAE PRN (22:02)
[2025-03-22] MEDS ORDERED: MELATONIN 3 MG TAB PO PRN (22:02)
[2025-03-22] MEDS ORDERED: ARTIFICIAL TEARS OP PRN (22:17)
[2025-03-22] MEDS: ATORVASTATIN 20 MG TAB PO SCH (22:22)
[2025-03-23 07:27] LABS: Anion Gap 6.0 (3-11); Blood Urea Nitrogen 29.0 mg/dl (6-23); Calcium 8.9 mg/dl (8.6-10.3); Carbon Dioxide 27.0 mmol/L (21-32); Chloride 108.0 mmol/L (98-107); Creatinine Clr Calc Pharmacy 51.7 ml/min; Glucose 98.0 mg/dl (70-99(Fasting)); Potassium 4.1 mmol/L (3.5-5.1); Sodium 141.0 mmol/L (136-145)
--- NOTE | 2025-03-23 07:37 | Pre Anesthesia Assessment ---
Date of Service March 23, 2025 Pre Sedation Assessment Vital Signs Temp Pulse Pulse Resp BP BP Pulse Ox 03/23/25 07:15 98.2 F 76 18 178/84 H 97 03/23/25 03:00 98.2 F 03/23/25 02:56 65 16 160/72 H 96 03/22/25 23:13 152/71 H 03/22/25 22:58 85 03/22/25 22:00 164/84 H 03/22/25 21:22 74 16 96 03/22/25 19:55 70 03/22/25 19:37 74 16 149/80 H 98 03/22/25 18:33 87 16 99 03/22/25 17:00 79 16 99 03/22/25 16:10 71 03/22/25 16:00 75 19 136/89 99 03/22/25 15:30 84 18 154/93 H 99 03/22/25 15:00 82 15 171/92 H 99 03/22/25 14:54 76 19 171/92 H 99 03/22/25 13:57 78 14 96 03/22/25 13:57 96 03/22/25 13:33 98.4 F 102 H 20 120/78 97 O2 Del Method O2 Flow Rate 03/23/25 07:15 Room Air 03/23/25 03:00 03/23/25 02:56 Room Air 03/22/25 23:13 03/22/25 22:58 03/22/25 22:00 03/22/25 21:22 Room Air 03/22/25 19:55 03/22/25 19:37 Room Air 03/22/25 18:33 03/22/25 17:00 03/22/25 16:10 03/22/25 16:00 03/22/25 15:30 03/22/25 15:00 03/22/25 14:54 03/22/25 13:57 Room Air 03/22/25 13:57 Room Air 0 03/22/25 13:33 Room Air Cardiovascular + regular rate Respiratory + respiratory effort normal Pre-Sedation Airway Assessment Smoking Status: Never smoker Hx Sleep Apnea: No Hx Difficult Intubation: No Thyromental Distance: > or= 3.5 Finger Breadths Oral Cavity: + Dental Abnormalities Mallampati Class: III ASA: ASA3 Procedure Planning Contraindications for Sedation: none Current Medications Reviewed: Yes Notes The planned sedation has been discussed with the patient. Informed Consent was obtained. I have identified the patient, determined the appropriateness of sedation and have assessed the patient immediately prior to the procedure. All medicine(s) and interventions are by my order.
[2025-03-23] MEDS: OPTIRAY 350 ONE (07:54)
[2025-03-23] MEDS: NITROGLYCERIN/D5W 100MCG/ML 20ML SYR ONE (07:54)
[2025-03-23] MEDS: niCARdipine 2,000 MCG/20 ML SYR ONE (07:54)
[2025-03-23 08:39] LABS: Hemoglobin A1C 5.5 % (4.5-5.6)
[2025-03-23] MEDS: IODIXANOL (VISIPAQUE) 320 MG/ML 100ML IV ONE (08:49)
[2025-03-23] MEDS: HEPARIN (PORCINE) 1000 UNIT/ML 10 ML (CATH LAB USE ONLY) ONE (08:49)
[2025-03-23] MEDS: MIDAZOLAM HCL 1 MG/ML 2ML VIAL ONE (08:49)
--- NOTE | 2025-03-23 09:11 | Post Anesthesia Assessment ---
Date of Service March 23, 2025 Post Sedation Assessment Vital Signs Temp Pulse Pulse Resp BP BP Pulse Ox 03/23/25 07:15 98.2 F 76 18 178/84 H 97 03/23/25 07:00 03/23/25 03:00 98.2 F 03/23/25 02:56 65 16 160/72 H 96 03/22/25 23:13 152/71 H 03/22/25 22:58 85 03/22/25 22:00 164/84 H 03/22/25 21:22 74 16 96 03/22/25 19:55 70 03/22/25 19:37 74 16 149/80 H 98 03/22/25 18:33 87 16 99 03/22/25 17:00 79 16 99 03/22/25 16:10 71 03/22/25 16:00 75 19 136/89 99 03/22/25 15:30 84 18 154/93 H 99 03/22/25 15:00 82 15 171/92 H 99 03/22/25 14:54 76 19 171/92 H 99 03/22/25 13:57 78 14 96 03/22/25 13:57 96 03/22/25 13:33 98.4 F 102 H 20 120/78 97 O2 Del Method O2 Flow Rate 03/23/25 07:15 Room Air 03/23/25 07:00 Room Air 03/23/25 03:00 03/23/25 02:56 Room Air 03/22/25 23:13 03/22/25 22:58 03/22/25 22:00 03/22/25 21:22 Room Air 03/22/25 19:55 03/22/25 19:37 Room Air 03/22/25 18:33 03/22/25 17:00 03/22/25 16:10 03/22/25 16:00 03/22/25 15:30 03/22/25 15:00 03/22/25 14:54 03/22/25 13:57 Room Air 03/22/25 13:57 Room Air 0 03/22/25 13:33 Room Air Recovery Score Activity: Moves 4 extremities Respiration: Deep Breath/Cough Circulation: +/-20% PreAnes Value Consciousness: Fully Awake Oxygen Saturation: O2 needed for >90% Discharge Sedation Level of Care: Fast Track Phase II
--- NOTE | 2025-03-23 09:12 | Cardiac Catheterization ---
[facility] Data: Roving Winder Cardiac Status Clinical evaluation leading to the procedure CAD Presenation: Sx unlikely to be ischemic Diagnostic Physicians Name: Mao Martinez MD Closure Device Recommendations: Medical Therapy and/or Counseling Cardiac Cath Procedure Full Procedure Date March 23, 2025 Pre-Procedure Diagnosis Pre-Procedure Diagnosis: Valvular Disease AUC Score AUC Score: 7 Post-Procedure Diagnosis Post-Procedure Diagnosis: Normal Coronary Arteries and Normal Intracardiac Pressures Procedure(s) Performed Procedure(s) Performed: Coronary Angiography, Left Heart Cath and Aortography Human Resources Consultant Mao Martinez MD Grazing Aide(s) Cheo Estimated Blood Loss Estimated Blood Loss: 10 Medication(s) Medication(s): Fentanyl, Heparin, Lidocaine 1%, Nicardipine, Nitroglycerin and Versed Summary of Findings Indication: Severe aortic stenosis Access: 6 Fr slender right radial artery Catheters: Bath, AL-1, JR4, AR-1, MPA, pigtail Findings: LM -Short, almost separate ostium, no significant disease LAD -large caliber, mid segment luminal irregularities, distal vessel without significant disease and wraps around apex. Gives off large D1 without significant disease. Circumflex -dominant, large caliber, no significant disease. Bifurcating OM 3 without significant disease. Small L PDA without disease. RCA -nonselectively engaged, very small, nondominant, anomalous takeoff from left coronary cusp, no significant disease LVEDP -11 Aortic valve pullback peak gradient 44 mmHg. Arterial Closure: TR band Summary: 1. Angiographically normal coronary arteries 2. 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 3. Normal intracardiac filling pressure 4. Aortic stenosis (pullback gradient 44 mmHg). 5. Normal aortic root/ascending aorta/descending aorta. Trace AI. Recommendations: Proceed with TAVR evaluation Continued ASCVD risk factor modification Hemodynamics Rest Ao:: 144/70/107 Final Ao: 152/66/101 LV: 188/11 Recommendations Recommendations: Medical Therapy and/or Counseling Radiation Exposure (mGy) 727 Contrast (mls) 100 Anesthesia Moderate 8821-3945 Procedural Complication(s) None Disposition Roving W[facility] Holding/Recovery I attest to the content of the Intraoperative Record and any orders documented therein. Any exceptions are noted below. [employer] Card Cath Procedure Codes Cardiac Catheterization Procedure 1: Cardiovascular Cath Procedures: 65896 Coronaries and LHC (+/-LV) Procedure 2: Cardiovascular Cath Procedures: 91731 Supravalvular Aortography (Injection during Cardiac Cath) Moderate Sedation Procedure 1: Sedation/Anesthesia: 68218 Mod Sedation by the same physician;Init15 Min Child Age 5 & Up Procedure 2: Sedation/Anesthesia: 34228 Mod Sedation by the same physician; Ea [id number] Minutes PG Care Time/CCT Total # of Minutes Spent Total Time Spent with Patient: Total time spent is greater than 50% in coordination of care (as documented) at patient's floor/unit and/or counseling patient:
[2025-03-23] MEDS: MULTIVITAMIN TAB PO SCH (10:07)
[2025-03-23] MEDS: CHOLECALCIFEROL 25 MCG (1000 UNITS) TAB PO SCH (10:07)
--- NOTE | 2025-03-23 12:52 | Cardiology Consultation ---
Date of Consultation March 23, 2025 Assessment & Plan (1) Orthostatic dizziness: (2) Severe aortic stenosis: (3) Exertional chest pain: Plan Pmhx: 1. History of right bundle branch block with symptomatic 2:1 AV conduction, status post dual-chamber pacemaker, Medtronic Marylin MRI-compatible device, 03/2020. - Echocardiogram, 01/2025, with normal biventricular size and function and moderate to severe aortic stenosis (DI 0.24 and AVAI 0.38 cm2/m2). 2. Negative stress echo for ischemia 11/2017. 3. Polyneuropathy of unclear etiology. 4. Varicose veins. 5. Status post total abdominal hysterectomy with bilateral salpingo- oophorectomy in 2014 at [facility]. 6. Diabetes mellitus type 2 on insulin. 8. Post-pacemaker implantation pericardial effusion, which has resolved. 9. Severe aortic stenosis - Echo 01/2025: Summary - Normal left ventricular size and systolic function with no regional wall motion abnormalities, Ejection fraction as calculated by Biplane Simpsons method is 60%, No left ventricular hypertrophy, Grade I diastolic dysfunction of the left ventricle (impaired relaxation pattern) with indeterminate left trial pressure, Heavily calcified aortic valve with moderate to severe aortic stenosis (AV peak velocity is 3.81 m/s, LVOT/AV ratio is 0.24, AV mean PG is 34 mmHg, AVAI 0.38 cm2/m2), Mild tricuspid regurgitation, Normal estimated pulmonary artery pressures, estimated PASP is 25 mmHg. 10. Cardiac catheterization - Findings: LM -Short, almost separate ostium, no significant disease LAD -large caliber, mid segment luminal irregularities, distal vessel without significant disease and wraps around apex. Gives off large D1 without significant disease. Circumflex -dominant, large caliber, no significant disease. Bifurcating OM 3 without significant disease. Small L PDA without disease. RCA -nonselectively engaged, very small, nondominant, anomalous takeoff from left coronary cusp, no significant disease LVEDP -11 Aortic valve pullback peak gradient 44 mmHg. Arterial Closure: TR band Summary: 1. Angiographically normal coronary arteries 2. Normal intracardiac filling pressure 3. Aortic stenosis (pullback gradient 44 mmHg). Ms. Burns is feeling a bit better today. She clearly became intravascularly dry with the addition of furosemide which is exacerbated her orthostatic hypotension which has been mild in the past. She may have a component of dysautonomia given her neuropathy. Her furosemide can be changed to prn with weight gain 2lbs in 24 hours or 5 lbs in a week. We could consider at 2.5 mg bid midodrine for her orthostasis but I'm a little hesitant to do so given her significant hypertension at times. She should wear compression stockings if tolerable with her neuropathy. Fortunately, her catheterization did not show significant coronary disease and her LVEDP was normal. Her aortic valve mean gradient was consistent with severe . I messaged [facility] to let them know her cath was completed and so hopefully her workup appointment can be expedited. I messaged pacer device clinic to see if there was any afib on her device. If her lightheadedness and orthostatics are improved this afternoon, she could be discharged home. Case discussed with Dr. Palacios History of Present Illness Attending Physician: Bj Choi MD History of Present Illness Ms. Burns presented to the ED yesterday after becoming very lightheaded and hypotensive. There was also concern for afib on a Kardia device. Her CTA did not show PE but did describe pulmonary congestion. Her troponin was normal. Her EKG demonstrated pacing rhythm. She was having dizziness prior to starting the furosemide which in retrospect was getting worse. She has a history of dizziness and particularly has trouble tolerating antihypertensives. She notes that after starting the furosemide following her clinic visit with me last week, she dropped 4 pounds and her c lothes got looser. She was having mild chest tightness with exertion prior to that which resolved. She is not having any sob or chest discomfort today. She is still dizzy with standing. She is accompanied by her daughter Una Burns in the room. Allergies Allergy/AdvReac Type Severity Reaction Status Date / Time Sulfa (Sulfonamide Allergy Unknown Rash Verified 02/26/25 09:18 Antibiotics) Home Medications Medication Instructions Recorded Confirmed Type atorvastatin 20 mg tablet 20 mg PO QPM #45 tabs 05/06/19 03/22/25 History conjugated estrogens 0.625 mg/gram 1 applic topical UD 06/11/20 03/22/25 History vaginal cream azelastine 137 mcg (0.1 %) nasal 2 spray intranasal DAILY PRN 04/11/23 03/22/25 History spray Allergy Symptoms cyclosporine 0.05 % eye drops in a 1 drp ophthalmic (eye) BID 04/11/23 03/22/25 History dropperette (Restasis) ipratropium bromide 21 mcg (0.03 1 spray intranasal UD PRN Allergy 04/11/23 03/22/25 History %) nasal spray Symptoms Medical Marijuana Card 1 dose topical UD PRN neuropathy 06/08/23 03/22/25 History cholecalciferol (vitamin D3) 25 25 mcg PO DAILY 02/26/25 03/22/25 History mcg (1,000 unit) capsule multivitamin (Daily Multi-Vitamin 1 tab PO DAILY 02/26/25 03/22/25 History tablet) vitamin B with alpha lipoic acid 2 cap PO DAILY 02/26/25 03/22/25 History vitamins A,C,N-djtt-hztucb 4,296 1 cap PO BID 02/26/25 03/22/25 History mcg-226 mg-90 mg capsule (PreserVision AREDS) propranolol 10 mg tablet 10 mg PO BID #60 tabs 03/17/25 03/22/25 Rx furosemide 20 mg tablet 20 mg PO DAILY 03/22/25 03/22/25 History lansoprazole 30 mg capsule,delayed 30 mg PO DAILY PRN Heartburn 03/22/25 03/22/25 History release Patient History Medical History Radiculopathy chronic Exertional shortness of breath hx, "worse before, but still gets a little short of breath with stairs" Hx of colonic polyps Restrictive lung disease hx, 2019, f/u dr. vieira, no current issues Right bundle branch block (RBBB) Status post implantation of dual-chamber Medtronic pacemaker 03/30/2020 Scoliosis Spinal stenosis History of hypothyroidism Prediabetes Hx of pleural effusion 2019, f/u dr. vieira, no current issues Lumbar and sacral spondylarthritis IBS (irritable bowel syndrome) hx, no current issues History of hypertension no longer needs meds Heart block Status post implantation of dual-chamber Medtronic pacemaker 03/30/2020 Dyslipidemia Asthma no inh, no recent issues Anxiety disorder Poor balance neuropathy Schatzki's ring Hiatal hernia Seasonal allergies chronic sinus issues Pacemaker Medtronic, 2019, Dr Cartagena Regular checks once a yr. last check ? February 2024. Remote checks every 3 months. 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 Reason for most recent colonoscopy Apr 2023/Polyp was able to be removed. Surgical History History of esophagogastroduodenoscopy (EGD) History of colonoscopy S/P laparoscopic appendectomy 10/28/19 Dr. Cosme History of salpingo-oophorectomy bilateral Family History Mother , age 89 from CVA Hypertension Osteoarthritis Stroke Father , age 83; had 2 MIs during his lifetime Hypertension Cardiac disorder Myocardial infarction Coronary heart disease Unknown Heart disease Sister , sarcoma of the bowel; age 81 Kidney stones Cancer Aunt Diabetes Denies family history of Ovarian cancer Breast cancer Colorectal cancer Social History Smoking Status: Never smoker Second Hand Exposure: No; Do You Dip or Chew Tobacco: No; Hx Alcohol Use: No Hx Substance Use: No Preferred Language: Mongolian Communication Ability: Effective Lacquer Pin Press Operator Required: No Beliefs That Will Affect Care: None marital status: / Current Living Situation: Alone Current Living Situation Comment: alone in ranch style home current occupational status: retired 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 How many Children do You have: 1 How many Children do You have Comment: daughter is a surgeon with [employer] Other Information That Helps Us Care for You: No Feels Safe at Home: Yes Safety Concerns: Feels Safe At This Time Assistive Devices: Cane Review of Systems Review of Systems: All systems reviewed & are unremarkable except as noted in HPI & below Physical Exam Constitutional: WD/WN, vitals as above Respiratory: normal respiratory effort, lungs clear to auscultation Cardiovascular: Rate/Rhythm: regular rate and regular rhythm Heart Sounds: + murmur (3/6 rusb late peaking systolic ) Extremities: no edema Skin: no rashes, warm and dry Neurologic: moves all extremities and awake Psychiatric: A+Ox3, euthymic affect Results & Data Vital Signs (Past 12 Hours) Vital Signs Temp Pulse Resp BP Pulse Ox O2 Del Method O2 Flow Rate 03/23/25 11:07 36.5 C 82 20 132/85 96 Room Air 03/23/25 10:50 36.6 C 79 20 109/70 97 Room Air 03/23/25 10:30 77 20 129/75 96 Room Air 03/23/25 10:15 37.1 C 69 20 153/82 H 97 Room Air 4 03/23/25 09:35 36.7 C 75 20 150/68 H 97 Room Air 03/23/25 09:30 60 18 143/73 H 95 Room Air 03/23/25 09:15 60 18 145/84 H 97 Room Air 03/23/25 07:15 36.8 C 76 18 178/84 H 97 Room Air 03/23/25 07:00 Room Air 03/23/25 03:00 36.8 C 03/23/25 02:56 65 16 160/72 H 96 Room Air
[2025-03-23] MEDS: cefTRIAXone SODIUM 2,000 MG/50 ML BAG IV SCH (16:43)
--- NOTE | 2025-03-23 16:54 | Communication Note ---
Date of Service: March 23, 2025 By CMS guidelines, a determination that the admission or continued stay is not medically necessary has been made by a member of the UR committee and a physic dago for this hospital stay, therefore a Code 44 will be completed and the Inpatient admission will be changed to outpatient.
[2025-03-23 17:00] VITALS: BP 138/79; PULSE 74; RESP 23; TEMP 98.8; O2SAT 98
--- NOTE | 2025-03-23 17:09 | Communication Note ---
Date of Service: March 23, 2025 By CMS guidelines, a determination that the admission or continued stay is not medically necessary has been made by a member of the UR committee and a physi isael for this hospital stay, therefore a Code 44 will be completed and the Inpatient admission will be changed to outpatient. Bj Choi MD Attending physician/hospitalist
--- NOTE | 2025-03-23 17:11 | Hospitalist Progress Note ---
Date of Service March 23, 2025 Assessment & Plan (1) Orthostatic dizziness: (2) Aortic stenosis: (3) Exertional chest pain: (4) Status cardiac pacemaker: (5) Heart block: (6) Restrictive lung disease: (7) Idiopathic peripheral neuropathy: (8) Impaired fasting glucose: (9) Scoliosis: (10) Bacteriuria: Plan Very pleasant 80yo female with history of severe aortic stenosis, long-standing dizziness/orthostasis, severe polyneuropathy affecting her legs (and her hands to smaller degree), pacemaker status due to heart block, allergic rhinitis, scoliosis with resulting restrictive lung disease, and very mild pre-DM who presents from home with worsening dizziness/lightheadedness over the past several days. Mrs Burns reports that for a long time she has suffered from dizziness/lightheadedness, but since about /Sunday of last week she has had much more frequent and severe symptoms. #acute on chronic dizziness/lightheadedness/orthostasis - -about a 20 point BP drop with standing in the ER this evening -she clinically and biochemically on labs appears intravascularly volume contracted -will give 500cc of NS overnight -repeat orthostatic BPs in the am -hold lasix -hold inderal and any other anti-hypertensive -there has been discussion in the past about her having autonomic orthostasis as a result of her long-standing severe polyneuropathy -this, coupled with her severe as well as recent lasix use, all are likely contributors to worsening dizziness -fortunately no vertigo and neuro exam is wnl #severe - -patient was to have a pre-TAVR heart catheterization with Dr Mao Martinez with [facility] on 03/31 -the ER attending did briefly correspond with Dr Martinez about the ability to perform the cath during this stay -I also corresponded with Dr Martinez and he plans for cath sometime tomorrow; thus, make NPO after MN tonight -see discussion above re: IV fluids, lasix, etc. -I am uncertain if some of her chest tightness is from the itself vs underlying/undiagnosed CAD vs asthma vs other etiology -formal consult placed to Dr Martinez -will also place formal consult to [facility] to follow #pacemaker status - -there was some question about rapid pulse & rapid heart rhythm detected at home by family -although she just had the device interrogated 2 weeks ago (was normal by report) will repeat the interrogation -she is being placed on PCU telemetry -pacer was placed in the past due to heart block -EKG with evening with ventricularly paced rhythm #chest tightness with exertion - -chronic -to have left heart cath with Dr Martinez this admission -CTA chest without PE or pneumonia -she does not examine in CHF despite the CTA showing "pulm vascular congestion" -although the chart lists asthma as a diagnosis, her prior PFTs did not show obstructive lung disease #chronic polyneuropathy - -just had EMGs by Dr Meléndez in the Neuro clinic -this showed severe polyneuropathy of uncertain etiology as well as mild radiculopathy from the lumbar spine -she has had extensive w/u for the polyneuropathy in the past including B1, B6, B12, TSH, lyme, etc -- all normal/negative -will add on a copper level to be complete -she is not on gabapentin, lyrica, or other agents for this issue #h/o pre-DM - -check Hba1c in am #bacteriuria - -although she has nitrites, WBCs, and bacteria on ua with microscopy today, she has NO UTI symptoms at this time -with that said a urine cx was dispatched from the ER and rocephin x 1 was given prior to my admission assessment -I cannot say if there is true UTI present; I cannot exclude UTI contributing to her worsening dizziness and presentation #hyperlipidemia - -cont lipitor -she follows with [facility] and thus I do not have access to her most recent lipid profile but will attempt to get such #DVT Proph - -hold off on chemical DVT proph at time of admission due to pending heart cath by Dr Martinez pt's family updated at bedside during the admission process Admission and Anticipated Discharge Date Admission Date: March 22, 2025 Physical Exam Physical Exam: gen - NAD, pleasant, resting comfortably in bed eyes - PERRL HENT - MM modestly dry, no lesions; nose clear neck - right submandibular gland vs submandibular lymph node - firm/hard, about 2-3cm in size, mobile; no JVD; no generalized goiter heart - RRR, 3/6 holosystolic murmur heard loudest RUSB, s1, s2 barely heard at the RUSB lungs - CTA b/l, no rales, no wheeze abd - soft NT ND BS+; no HSM; negative hepatojugular reflex ext - no edema, pulses 2+ b/l feet and b/l radial pulses skin - no rash musculo - no joint deformities or synovitis neuro - strength 5/5 x 4 exts; no facial droop psych - a/o x 3 Results & Data Results & Data Vital Signs (Past 12 Hours) Vital Signs Temp Pulse Resp BP Pulse Ox O2 Del Method O2 Flow Rate 03/23/25 15:52 37.1 C 74 23 138/79 98 Room Air 03/23/25 11:07 36.5 C 82 20 132/85 96 Room Air 03/23/25 10:50 36.6 C 79 20 109/70 97 Room Air 03/23/25 10:30 77 20 129/75 96 Room Air 03/23/25 10:15 37.1 C 69 20 153/82 H 97 Room Air 4 03/23/25 09:35 36.7 C 75 20 150/68 H 97 Room Air 03/23/25 09:30 60 18 143/73 H 95 Room Air 03/23/25 09:15 60 18 145/84 H 97 Room Air 03/23/25 07:15 36.8 C 76 18 178/84 H 97 Room Air 03/23/25 07:00 Room Air PG Care Time/CCT Total # of Minutes Spent Total Time Spent with Patient: Total time spent is greater than 50% in coordination of care (as documented) at patient's floor/unit and/or counseling patient: Coding Diagnoses Orthostatic dizziness R42 Aortic stenosis I35.0 Exertional chest pain R07.9 Status cardiac pacemaker Z95.0 Heart block I45.9 Restrictive lung disease J98.4 Idiopathic peripheral neuropathy G60.9 Impaired fasting glucose R73.01 Scoliosis M41.9 Bacteriuria R82.71
--- NOTE | 2025-03-25 16:25 | Discharge Summary ---
Discharge Summary Date of Service date of admission - March 22, 2025 date of discharge - March 23, 2025 Principal Dx & Hospital Course #1 = Principal Diagnosis (1) Orthostatic dizziness: (2) Aortic stenosis: (3) Exertional chest pain: (4) Status cardiac pacemaker: (5) Heart block: (6) Restrictive lung disease: (7) Idiopathic peripheral neuropathy: (8) Impaired fasting glucose: (9) Scoliosis: (10) Bacteriuria: (11) Thyroid nodule greater than or equal to 1 cm in diameter incidentally noted on imaging study: Plan #acute on chronic dizziness/lightheadedness/orthostasis - -patient had about a 20 point BP drop with standing in the ER the evening of admission -she clinically and biochemically on labs appeared intravascularly volume contracted -received NS hydration, lasix was held, and inderal was held -although she still had about a 20 point drop in BP with standing on day of discharge she was less dizzy and able to ambulate comfortably -there has been discussion in the past about her having autonomic orthostasis as a result of her long-standing severe polyneuropathy -this, coupled with her severe as well as recent lasix use, were all likely contributors to the worsening dizziness -fortunately no vertigo, CT head was negative, and neuro exam was wnl -I cannot rule out that the klebsiella UTI was playing some role in her presentation -at discharge we discussed using lasix PRN only, proper hydration (we reviewed amounts of fluid that will keep her hydrated without causing fluid overload), using compression stockings on legs, and checking daily weights at home #severe - -s/p pre-TAVR left heart catheterization performed by Dr Martinez, [facility], this admission -no CAD identified -aortic valve pullback peak gradient was 44 mmHg c/w severe -CTA chest with normal pulmonary vasculature -her catheterization images and CTA chest were placed on CDs to take to her future valve clinic appointment at [facility] -severe is likely contributing to her dizziness -advised to stop propranolol and to use lasix PRN only -she was asked to f/u with [facility] shortly after discharge to arrange her TAVR evaluation in [place] #pacemaker status - -there was some question about rapid pulse & rapid heart rhythm detected at home by family prior to admission -pacemaker interrogation was normal; no arrhythmia seen in the days leading up to admission -pacemaker is functioning well and has plenty of years left of battery #chest tightness with exertion - -chronic -s/p left heart cath with Dr Martinez which showed NO CAD -CTA chest without PE or pneumonia -she did not examine in CHF despite the CTA chest showing "pulm vascular congestion" -although the chart lists asthma as a diagnosis, her prior PFTs did not show obstructive lung disease -tightness due to restrictive lung disease from severe scoliosis? #chronic polyneuropathy - -just had EMGs by Dr Martin Meléndez in the [facility] Neurology clinic -this showed severe polyneuropathy of uncertain etiology as well as mild radiculopathy from the lumbar spine -she has had extensive w/u for the polyneuropathy in the past including B1, B6, B12, TSH, lyme, etc -- all normal/negative -checked a copper level to be complete and this returned NORMAL -she is not on gabapentin, lyrica, or other agents for this issue -briefly discussed Cymbalta; she will follow-up with her PCP or Dr Meléndez for this #h/o pre-DM - -Hba1c 5.5% this admission #bacteriuria - -uncertain if this was exhibit display representative of asymptomatic bacteriuria vs true UTI -urine cx grew klebsiella pneumoniae -s/p 2 doses of rocephin IV while here -will finish 5-day course of PO keflex upon return home #hyperlipidemia - -cont lipitor #thyroid nodule - -1.4cm, right sided -incidental finding on chest CT -outpatient thyroid u/s recommended Notes For Next Care Provider Incidental finding of right thyroid nodule - 1.4cm in size #Recommend dedicated thyroid ultrasound# Medication Changes From Visit Keflex 500mg BID x 5 days for UTI STOP propranolol CHANGE lasix to PRN use only Admission HPI Per Admitting Provider Very pleasant 80yo female with history of severe aortic stenosis, long-standing dizziness/orthostasis, severe polyneuropathy affecting her legs (and her hands to smaller degree), pacemaker status due to heart block, allergic rhinitis, scoliosis with resulting restrictive lung disease, and very mild pre-DM who presents from home with worsening dizziness/lightheadedness over the past several days. Mrs Burns reports that for a long time she has suffered from dizziness/lightheadedness, but since about /Sunday of last week she has had much more frequent and severe symptoms. Sitting down/laying down helps resolve the dizziness. Denies vertigo. Denies any recent illness. Last week she was seen by [facility] in [place]. She was given a prescription for lasix 20mg tablets due to edema of her legs as well as her clothes fitting more tightly. She took a dose yesterday morning and today. Today, 03/22/25, her dizziness symptoms were so severe that she called her daughter. In addition, earlier today her daughter who is a physician as well as her son-in-law who is a physician physical laboratory assistant were concerned that perhaps she was in atrial fibrillation as her pulse was fast. She has a pacemaker and it was last interrogated about 2 weeks ago. She reports her pacer has had normal function and no atrial fibrillation has been detected in the past. Denies any loss of appetite. Has been eating/drinking normally. With respect to her severe aortic stenosis -- Mrs Burns was to have a pre-TAVR cardiac catheterization on 03/[address] Jose Martinez. She has yet to establish with the valve clinic at [facility]. Finally, during medication review, Mrs Burns states she is NOT taking any propranolol at this time. Discharge Exam gen - NAD, pleasant mouth - MMM neck - no JVD heart - RRR, s1, s2 is heard but very faint; 3/6 holosystolic murmur RUSB lungs - CTA b/l back - severe scoliosis abd - soft NT ND BS+ ext - no edema, pulses b/l feet 2+ vascular - right radial artery - no hematoma, no pseudo-aneurysm, pulse 2+ Discharge Plan Discharge Items Patient Disposition: Home - Self-Care Reason For Visit: SEVERE DIZZINESS Discharge Diagnosis: 1. acute on chronic dizziness/orthostatic hypotension 2. severe aortic stenosis 3. possible urinary tract infection 4. severe neuropathy 5. chronic chest tightness with activity - not due to coronary artery disease; cardiac catheterization was normal Activity: Per Instructions section Non-emergency contact: Primary Care Provider and Waxed Bag Machine Operator Call non-emergency contact if: you have any medication questions and your symptoms worsen Follow-up/Referrals: Neeraj Meléndez MD [Physician] - 04/16/25 (keep previously scheduled appointment with Dr Meléndez from neurology) Kenroy Way DO [Physician] - (1-[address] or DANIELITO Ortiz) Paris Chauhan [Primary Care Provider] - Diet: Heart Healthy Fluids: 1800ml (7 cups) Addtl Attending Provider Instructions: Mrs Burns, You were hospitalized due to severe dizziness & lightheadedness. This was likely due to multiple factors including mild dehydration, recent furosemide use, your pre-existing tendencies towards orthostatic hypotension (which is a drop in blood pressure with standing), and your severe aortic stenosis. Possible urinary tract infection could have played an indirect role as well. You received a small amount of IV fluids and your furosemide was held. Your creatinine (kidney number) improved with the IV fluids. In preparation for your valve replacement surgery Dr Mao Martinez from [facility] performed heart catheterization. Your coronary arteries were completely normal. No plaque build-up was seen in your arteries. In addition, we checked your pacemaker and no abnormal heart rhythms were found (atrial fibrillation, etc) over the last month. Ms Cullen from [facility] saw you in consult and at this time the following are recommended - 1. please use furosemide on an as needed basis only. 2. check your weight every morning on the same scale after using the bathroom. Keep a log of your weights in a notebook. If you gain more than 2-3 pounds over a 1-2 day period this may be a sign of fluid retention. If you do gain this amount of weight you can take the furosemide each morning until your weight is back to your "dry" weight. 3. consider wearing compression stockings (knee highs are fine). If you do wear them be sure to take them off at night when sleeping. 4. you can drink up to 1500-1800ml of fluid each day. This amount is not too much fluid for your heart, and this level of intake will keep you hydrated. With your tendencies towards having dizziness, drinking closer to 1800ml is likely better in your case. Additional recommendations - -cephalexin antibiotic - 500mg twice daily x 5 days, first dose on 03/24/25 in the evening; this is for urinary tract infection -see instructions below regarding your recent heart catheterization Follow-up - see separate section Return to [facility] if - -you have any concerns about your heart cath site over the right wrist -you have worsening shortness of breath -your dizziness/lightheadedness/orthostatic hypotension becomes severe again -you have severe palpitations (heart racing) -any other concerns It was our pleasure to care for you! Addtl Consumer Education Specialist Provider Instructions: ACTIVITY RECOMMENDATIONS following your heart catheterization: It is common to feel weak and fatigue for a few days. * Do not drive or operate any motorized equipment for the next three days. * Limit stair usage (2 or 3 trips a day only) for the next three days. * Do not lift anything heavier than 10 pounds for the next three days especially with your right arm. * Do not engage in vigorous exercise or any sports for the next five days. * You may shower the day after your procedure, but do not immerse the RIGHT WRIST in water for three days. Cleanse the site gently with soap and water. SPECIAL CARE INSTRUCTIONS: * You may replace the pressure dressing or band-aid the morning after the pro cedure. * After your procedure, it is normal to have a small bruise or small lump at the site. Examine your site daily for any change in the bruise or lump, redness, swelling, drainage or numbness. Notify your doctor if any change. BLEEDING: * If there is a small amount of bleeding at the site, lie down and apply firm pressure with a clean cloth for ten minutes. When the bleeding stops, lie quietly keeping the procedure limb straight for six hours. Notify your doctor as soon as possible. * If the bleeding does not stop after ten minutes or if there is a large amount of bleeding or spurting, call 911 immediately. Continue to lie down and hold firm pressure until help arrives. SKIN IRRITATION: * You may experience some redness and/or swelling in the area where radiation was administered. If any skin irritation occurs, please contact your family physician. Pending Studies at Discharge: Yes (copper level (for neuropathy)) Stand-Alone Forms: My swabr, Smoking Cessation Medications and DC Order Prescriptions: Continued atorvastatin 20 mg tablet 20 mg PO QPM Qty: 45 conjugated estrogens 0.625 mg/gram cream 1 applic topical UD Patient Comments: twice monthly Rx Instructions: twice monthly cholecalciferol (vitamin D3) 25 mcg (1,000 unit) capsule 25 mcg PO DAILY PreserVision AREDS 4,296 mcg-226 mg-90 mg capsule 1 cap PO BID vitamin B with alpha lipoic acid 2 cap PO DAILY multivitamin [Daily Multi-Vitamin] Tablet 1 tab PO DAILY cyclosporine [Restasis] 0.05 % Dropperette 1 drp OPHTHALMIC (EYE) BID Patient Comments: both eyes azelastine 137 mcg (0.1 %) aerosol,spray 2 spray intranasal DAILY PRN (Reason: Allergy Symptoms) Rx Instructions: administer into each nostril ipratropium bromide 21 mcg (0.03 %) spray,non-aerosol 1 spray intranasal UD PRN (Reason: Allergy Symptoms) Rx Instructions: administer into each nostril Medical Marijuana Card 1 dose topical UD PRN (Reason: neuropathy) Patient Comments: lotion lansoprazole 30 mg capsule,delayed release(DR/EC) 30 mg PO DAILY PRN (Reason: Heartburn) Changed furosemide 20 mg tablet 20 mg PO DAILY PRN (Reason: weight gain) Qty: 0 0RF Discontinued propranolol 10 mg tablet 10 mg PO BID Qty: 60 2RF Patient Comments: 03/22-per pt she hasnt started the medication yet. Discharge Orders: Discharge Order (Routine); Ordered 03/23/25 Ordered By: Bj Bills/Other Patient Handouts: Urinary Tract Infections in Women, Aortic Stenosis, TAVR Admission Data Admit Date/Time: 03/22/25 19:20 Attending Provider: Bj Choi Admit Provider: Bj Choi Primary Care Provider: Paris Chauhan Other Providers: Mao Martinez; Bj Choi; Alexi Parikh Other Interventions: Discharge Summary Assessment (RN) Last Done: 03/23/25 17:29 Hospital Stay Data Consultations [facility] Procedures Performed Operation Date: 03/23/25 07:00 Actual Procedures Cineradiography w/Routine Exam - Mao Martinez MD Cath, Left with Cors and Vent - Mao Martinez MD Injection / Imaging Aorta - Mao Martinez MD Findings: LM -Short, almost separate ostium, no significant disease LAD -large caliber, mid segment luminal irregularities, distal vessel without significant disease and wraps around apex. Gives off large D1 without significant disease. Circumflex -dominant, large caliber, no significant disease. Bifurcating OM 3 without significant disease. Small L PDA without disease. RCA -nonselectively engaged, very small, nondominant, anomalous takeoff from left coronary cusp, no significant disease LVEDP -11 Aortic valve pullback peak gradient 44 mmHg. Arterial Closure: TR band Summary: 1. Angiographically normal coronary arteries 2. 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 3. Normal intracardiac filling pressure 4. Aortic stenosis (pullback gradient 44 mmHg). 5. Normal aortic root/ascending aorta/descending aorta. Trace AI. Recommendations: Proceed with TAVR evaluation Continued ASCVD risk factor modification Pacemaker interrogation -- no recent arrhythmia (no a.fib, etc) Diagnostic Imagining Performed Chest X-Ray 03/22/25 13:46 Exam: Portable chest one view Reason for exam: Dizziness Previous study: 02/22/2024. FINDINGS: Left-sided pacemaker again noted. Cardiac size is normal. Lungs show some hyperinflation but no acute infiltrate, collapse or edema. Moderately severe scoliosis convex to the right is again noted. IMPRESSION: No acute cardiopulmonary disease seen at this time. Electronically signed by Donald Brandt 03-22-2025 2:[address] 03/22/25 13:46 Exam: CT head/brain without contrast Reason for exam: Dizziness Previous studies: MRI brain 05/10/2015 FINDINGS: No intracranial mass effect, hemorrhage or edema is found. No extra-axial blood or fluid collection or midline shift is seen. Ventricular size remains within normal limits. Mastoids and visualized paranasal sinuses remain well aerated. No acute process of the bony calvarium is found. IMPRESSION: Negative for active intracranial abnormality on unenhanced head CT study. Electronically signed by Donald Brandt 03-22-2025 2:59 PM Chest CTA 03/22/25 17:36 CT PULMONARY ANGIOGRAM. HISTORY: Chest pain TECHNIQUE: Enhanced CT examination of the chest was performed using pulmonary embolism protocol. IV CONTRAST: 100 mL of OMNIPAQUE 300 COMPARISON: Chest radiograph from same day. FINDINGS: PULMONARY ARTERIES: No filling defect identified to the segmental level. LYMPH NODES: No lymphadenopathy by size criteria. CARDIOVASCULAR: Enlarged cardiac size. No right heart strain no pericardial effusion. No aortic aneurysm. MEDIASTINUM: No solid or cystic mediastinal masses. The esophagus is normally decompressed. LUNGS/PLEURA: The central tracheo-bronchial tree is patent. No mass or consolidation identified. Mild pulmonary vascular congestion no pleural effusion or pneumothorax. No suspicious pulmonary nodules. Mild emphysema. BONES: No suspicious osseous lesions. Scoliosis VISUALIZED LOWER NECK: Right thyroid nodule measuring 1.4 cm. VISUALIZED UPPER ABDOMEN: Unremarkable IMPRESSION: No pulmonary embolism identified to the segmental level. Cardiomegaly without right heart strain. Mild pulmonary vascular congestion Mild emphysema Right thyroid nodule measuring 1.4 cm. Electronically signed by Jones Galdamez 03-22-2025 7:48 PM Pending Results Patient Have Any Pending Studies at Discharge: Yes (copper level (for neuropathy)) Discharge Instructions Given to Patient (Per Discharging Provider) Mrs Burns, Deven were hospitalized due to severe dizziness & lightheadedness. This was likely due to multiple factors including mild dehydration, recent furosemide use, your pre-existing tendencies towards orthostatic hypotension (which is a drop in blood pressure with standing), and your severe aortic s tenosis. Possible urinary tract infection could have played an indirect role as well. You received a small amount of IV fluids and your furosemide was held. Your creatinine (kidney number) improved with the IV fluids. In preparation for your valve replacement surgery Dr Mao Martinez from [facility] performed heart catheterization. Your coronary arteries were completely normal. No plaque build-up was seen in your arteries. In addition, we checked your pacemaker and no abnormal heart rhythms were found (atrial fibrillation, etc) over the last month. Ms Cullen from [facility] saw you in consult and at this time the following are recommended - 1. please use furosemide on an as needed basis only. 2. check your weight every morning on the same scale after using the bathroom. Keep a log of your weights in a notebook. If you gain more than 2-3 pounds over a 1-2 day period this may be a sign of fluid retention. If you do gain this amount of weight you can take the furosemide each morning until your weight is back to your "dry" weight. 3. consider wearing compression stockings (knee highs are fine). If you do wear them be sure to take them off at night when sleeping. 4. you can drink up to 1500-1800ml of fluid each day. This amount is not too much fluid for your heart, and this level of intake will keep you hydrated. With your tendencies towards having dizziness, drinking closer to 1800ml is likely better in your case. Additional recommendations - -cephalexin antibiotic - 500mg twice daily x 5 days, first dose on 03/24/25 in the evening; this is for urinary tract infection -see instructions below regarding your recent heart catheterization Follow-up - see separate section Return to [facility] if - -you have any concerns about your heart cath site over the right wrist -you have worsening shortness of breath -your dizziness/lightheadedness/orthostatic hypotension becomes severe again -you have severe palpitations (heart racing) -any other concerns It was our pleasure to care for you! Total Time Total Time Spent Total Time Spent (In Minutes): 40 Coding Level of Care Code 13889 INP/OBS DISCH >30 MIN Diagnoses Orthostatic dizziness R42 Aortic stenosis I35.0 Exertional chest pain R07.9 Status cardiac pacemaker Z95.0 Heart block I45.9 Restrictive lung disease J98.4 Idiopathic peripheral neuropathy G60.9 Impaired fasting glucose R73.01 Scoliosis M41.9 Bacteriuria R82.71 Thyroid nodule greater than or equal to 1 cm in diameter incidentally noted on imaging study E04.1
== END 2025-03-23 18:13 | disposition home or self-care (01) | DRG 287 ==
LOC: ED 13:28 → INTOOBSV 19:20 → 2E 19:20
PROC: CLB.IPA (2025-03-23 07:00)
DX: E03.9 Hypothyroidism, unspecified; R73.03 Prediabetes; I95.1 Orthostatic hypotension; G60.9 Hereditary and idiopathic neuropathy, unspecified; I45.10 Unspecified right bundle-branch block; R73.01 Impaired fasting glucose; R82.71 Bacteriuria; Z95.0 Presence of cardiac pacemaker; I35.0 Nonrheumatic aortic (valve) stenosis; K58.9 Irritable bowel syndrome, unspecified; E78.5 Hyperlipidemia, unspecified; M41.9 Scoliosis, unspecified; J98.4 Other disorders of lung; Z88.2 Allergy status to sulfonamides